=== PATIENT | male | born 1945 | race Two or more races ===

== ENCOUNTER 2017-08-18 09:36 | Emergency (ER) | payer MEDICARE, MEDICAID ==
[~2017-08-18] VITALS: Ht 167.6 cm; Wt 63.5 kg
[~2017-08-18 09:36] MED LIST: ATOR20TA PO; FLUT1DIS3 IH; FOLI1TAB16 PO; HYDR-552 PO; PRED10TA PO; ZOLP5TAB2 PO
[2017-08-18] MEDS ORDERED: diphenhydrAMINE HCL 50 MG/ML VIAL IV ONE (10:00)
[2017-08-18] MEDS ORDERED: FAMOTIDINE/PF INJ 40 MG in IV D5W 250 ML IV ONE (10:00)
[2017-08-18] MEDS ORDERED: predniSONE 10 MG TABLET PO ONE (10:00)
[2017-08-18] MEDS ORDERED: diphenhydrAMINE HCL 50 MG/ML VIAL ONE (10:35)
[2017-08-18] MEDS ORDERED: predniSONE 20 MG TABLET ONE (10:35)
--- NOTE | 2017-08-18 11:50 | NUR ---
COMPLETED MEDS AND IVF, STILL C/O ITCHING ON HIS BACK. DR SANTORO AWARE
--- NOTE | 2017-08-18 12:00 | NUR ---
IV removed. Catheter intact and site benign. Pressure and 4x4 applied to site. No bleeding noted.
--- NOTE | 2017-08-18 12:00 | NUR ---
Patient discharged to home in stable condition. Written and verbal after care instructions given. Patient verbalizes understanding of instruction.
[2017-08-18 12:02] VITALS: BP 125/60
== END 2017-08-18 12:03 | disposition home or self-care (01) ==
LOC: ER 09:44
DX: L50.0 Allergic urticaria (principal); J44.9 Chronic obstructive pulmonary disease, unspecified; F10.10 Alcohol abuse, uncomplicated; Z85.72 Personal history of non-Hodgkin lymphomas
CPT/HCPCS: A4606; J1200; J3490; J7060; Z7610

== ENCOUNTER 2017-08-24 12:23 | Emergency (ER) | payer MEDICARE, MEDICAID ==
[~2017-08-24] VITALS: Ht 172.7 cm; Wt 79.4 kg
[2017-08-24 13:22] LABS: BASOPHILS # (AUTO) 0.4 /CMM (0.0-0.2); BASOPHILS % (AUTO) 2.9 % (0.0-2.0); EOSINOPHILS # (AUTO) 0.6 /CMM (0.0-0.7); EOSINOPHILS % (AUTO) 4.5 % (0.0-6.0); HEMATOCRIT 51 % (39-51); HEMOGLOBIN 17.6 g/dL (13.5-17.5); LYMPHOCYTES # (AUTO) 3.8 /CMM (0.8-4.8); LYMPHOCYTES % (AUTO) 26.4 % (20.0-44.0); MEAN CORPUSCULAR HEMOGLOBIN 37 PG (26.0-33.0); MEAN CORPUSCULAR HGB CONC 35 g/dl (31.0-36.0); MEAN CORPUSCULAR VOLUME 107 fL (80-96); MONOCYTES # (AUTO) 4.9 /CMM (0.1-1.30); MONOCYTES % (AUTO) 33.5 % (2.0-12.0); NEUTROPHILS # (AUTO) 4.7 /CMM (1.8-8.9); NEUTROPHILS % (AUTO) 32.7 % (43.0-81.0); PLATELET COUNT (AUTO) 275 /CMM (150-450); RDW COEFFICIENT OF VARIATION 12.5 (11.5-15.0); RED BLOOD CELL COUNT(AUTO) 4.73 MIL/uL (4.5-6.0); WHITE BLOOD COUNT (AUTO) 14.4 K/uL (4.3-11.0)
[2017-08-24] MEDS ORDERED: hydrOXYzine 10 MG TABLET PO ONE (13:30)
[2017-08-24 13:42] LABS: INR 1.03 (0.87-1.13); PROTHROMBIN TIME 10.7 SECS (9.5-12.7)
[2017-08-24 13:44] LABS: ALANINE AMINOTRANSFERASE 40 U/L (12-78); ALBUMIN 2.9 g/dL (3.4-5.0); ALKALINE PHOSPHATASE 73 U/L (46-116); ASPARTATE AMINOTRANSFERASE 23 U/L (15-37); BILIRUBIN,TOTAL 0.8 mg/dL (0.2-1.0); CALCIUM, SERUM 8.4 mg/dL (8.5-10.1); CARBON DIOXIDE 31 mmol/L (21-32); CHLORIDE 100 mmol/L (98-107); CREATININE 1.4 mg/dL (0.6-1.3); GLUCOSE 143 mg/dL (74-106); POTASSIUM 4.2 mmol/L (3.5-5.1); SODIUM SERUM 135 mmol/L (136-145); UREA NITROGEN, BLOOD 23 mg/dL (7-18)
[2017-08-24] MEDS ORDERED: hydrOXYzine 10 MG TABLET ONE (13:44)
[2017-08-24] MEDS ORDERED: TRAMADOL HCL 50 MG TABLET ONE (14:13)
[2017-08-24] MEDS ORDERED: TRAMADOL HCL 50 MG TABLET PO ONE (14:30)
[2017-08-24 14:45] VITALS: BP 129/78
== END 2017-08-24 14:47 | disposition home or self-care (01) ==
LOC: ER 12:26
DX: L29.9 Pruritus, unspecified (principal); J44.9 Chronic obstructive pulmonary disease, unspecified; M54.5 Low back pain
CPT/HCPCS: 36415; 71250; 80053; 85025; 85610; 85730; 99285; A4606; Q0177; Z7610

== ENCOUNTER 2018-07-10 16:21 | Inpatient (IN) | payer MEDICARE, MEDICAID ==
[~2018-07-10] VITALS: Ht 177.8 cm; Wt 72.1 kg
[~2018-07-10 16:21] MED LIST changes: +HYDR-4384 PO; -HYDR-552 PO
--- NOTE | 2018-07-10 17:07 | NUR ---
72 Y/O MALE PLACED IN BED 15 C/O FEVER.
--- NOTE | 2018-07-10 17:36 | NUR ---
CALLED NURSING CATCH BASIN CLEANER FOR TELE BED
--- NOTE | 2018-07-10 17:42 | NUR ---
H/L 20G PLACED LEFT A/C. BLOOD OBTAINED AND SENT TO LAB.
[2018-07-10 17:47] LABS: HEMOGLOBIN 15.2 g/dL (13.5-17.5); MONOCYTES # (AUTO) 0.5 /CMM (0.1-1.30); MONOCYTES % (AUTO) 5.4 % (2.0-12.0); WHITE BLOOD COUNT (AUTO) 9.6 K/uL (4.3-11.0)
[2018-07-10 17:53] LABS: BASOPHILS % (AUTO) 0.5 % (0.0-2.0); EOSINOPHILS % (AUTO) 0.8 % (0.0-6.0); HEMATOCRIT 45 % (39-51); LYMPHOCYTES # (AUTO) 0.4 /CMM (0.8-4.8); LYMPHOCYTES % (AUTO) 4.3 % (20.0-44.0); MEAN CORPUSCULAR HGB CONC 34 g/dl (31.0-36.0); MEAN CORPUSCULAR VOLUME 112 fL (80-96); NEUTROPHILS # (AUTO) 8.5 /CMM (1.8-8.9); PLATELET COUNT (AUTO) 140 /CMM (150-450); RED BLOOD CELL COUNT(AUTO) 3.97 MIL/uL (4.5-6.0)
[2018-07-10] MEDS ORDERED: ACETAMINOPHEN 325 MG TABLET ONE (17:58)
[2018-07-10] MEDS ORDERED: IV NS 0.9% 1,000 ML BAG IV ONE (18:00)
[2018-07-10] MEDS ORDERED: ACETAMINOPHEN 325 MG TABLET PO ONE (18:00)
[2018-07-10 18:03] LABS: ALANINE AMINOTRANSFERASE 37 U/L (12-78); ALBUMIN 2.6 g/dL (3.4-5.0); ALKALINE PHOSPHATASE 101 U/L (46-116); ASPARTATE AMINOTRANSFERASE 26 U/L (15-37); BILIRUBIN,DIRECT 0.8 mg/dL (0.0-0.2); BILIRUBIN,TOTAL 1.8 mg/dL (0.2-1.0); CALCIUM, SERUM 8.7 mg/dL (8.5-10.1); CARBON DIOXIDE 26 mmol/L (21-32); CHLORIDE 99 mmol/L (98-107); CREATININE 1.3 mg/dL (0.6-1.3); GLUCOSE 144 mg/dL (74-106); SODIUM SERUM 137 mmol/L (136-145); TOTAL PROTEIN, SERUM 6.6 g/dL (6.4-8.2); UREA NITROGEN, BLOOD 15 mg/dL (7-18)
[2018-07-10] MEDS ORDERED: LEVOFLOXACIN 750 MG /D5W 150ML 150 ML IV ONE (18:20)
--- NOTE | 2018-07-10 18:26 | NUR ---
LABS BACK. ANTIBIOTICS STARTED.
[2018-07-10] MEDS ORDERED: VANCOMYCIN 1 GM in IV D5W 250 ML IV ONE (18:30)
[2018-07-10] MEDS ORDERED: LEVOFLOXACIN 750 MG /D5W 150ML PIGGYBACK IV ONE (18:30)
--- NOTE | 2018-07-10 18:46 | NUR ---
URINE COLLECTED AND SENT TO LAB
[2018-07-10 19:12] LABS: APPEARANCE,URINE Slightly Cloudy (CLEAR); BILIRUBIN,URINE SMALL (NEGATIVE); BLOOD, URINE Trace-lysed Ery/uL (NEGATIVE); COLOR,URINE Amber (YELLOW); KETONES,URINE Trace (NEGATIVE); LEUKOCYTE ESTERASE ,URINE Negative (NEGATIVE); NITRITE, URINE Positive (NEGATIVE); PH,URINE 5.5 (5.0-8.0); PROTEIN,URINE 100 mg/dl (NEGATIVE); UGLUCOSE Negative (NEGATIVE); UROBILINOGEN,URINE 0.2 EU/dL (0.2)
[2018-07-10 19:38] LABS: BACTERIA,URINE 1+ /HPF (None Seen); COARSE GRANULAR CASTS,URINE Few /LPF (None Seen); FINE GRANULAR CASTS,URINE Few /LPF (None Seen)
--- NOTE | 2018-07-10 19:38 | NUR ---
JIE MONTANO. PT ADMITTED.
[2018-07-10 19:39] LABS: MUCUS,URINE Few /LPF (None Seen); URINE AMORPHOUS URATE Few /HPF (None Seen)
[2018-07-10 19:41] LABS: SQUAMOUS EPITHELIAL CELL,UR Few /HPF (None Seen); WBC,URINE 0-2 /HPF (0-3)
[2018-07-10 20:00] LABS: BAND % (MANUAL) 14 % (0.0-5.0); LYMPHOCYTES % (MANUAL) 5 % (16-48); MONOCYTES % (MANUAL) 5 % (0-11.0); NEUTROPHILS % (MANUAL) 76 (42-76)
[2018-07-10] MEDS ORDERED: MORPHINE SULFATE INJ 4 MG/ML DISP.SYRIN IV PRN (20:00)
[2018-07-10] MEDS ORDERED: ONDANSETRON HCL/PF 4 MG/2 ML VIAL IVP PRN (20:00)
--- NOTE | 2018-07-10 20:00 | NUR ---
pt admitted to tele for fever, generalized body aches, and worsening generalized redness to the body, adx sepsis. pt has pmh of Macular Degeneration, CAD, Hyperlipidemia, COPD, Bronchitis, Pneumonia, UTI, Cellulitis, anemia, Lymphoma, and Myodysplastic syndrome. pt is awake alert x 4, pt is on room air sat wnl. pt is in st hr 120s, bp wnl. pt is voiding dark brown urine. skin is red and flaky. pt has temp of 101.2 in er. will continue to monitor
--- NOTE | 2018-07-10 20:02 | NUR ---
REPORT GIVEN TO JOANN. BIN - SEPSIS. WAITING FOR THE PACKET TO GET READY.
[2018-07-10] MEDS ORDERED: FEE PK DOSING 1 MIN EA MC ONE (20:26)
--- NOTE | 2018-07-10 20:44 | NUR ---
LACTIC DOWN TO 2.5
[2018-07-10] MEDS: IV NS 0.9% 1,000 ML IV SCH (21:12)
[2018-07-10] MEDS: ZOLPIDEM TARTRATE 5 MG TABLET PO SCH (21:17)
[2018-07-10 22:00] VITALS: BP 133/70
[2018-07-11] VITALS: BP 143/79
[2018-07-11] MEDS: PIPERACILLIN /TAZOBACTAM 3.375 G in IV D5W 50 ML IV SCH ×4 (00:07→17:04)
[2018-07-11] MEDS: ACETAMINOPHEN 325 MG TABLET PO PRN ×2 (00:17→11:46)
--- NOTE | 2018-07-11 02:43 | NUR ---
LACTIC ACID UP TO 6.1, DR ZALDIVAR NOTIFIED, NEW ORDERS RECEIVED
[2018-07-11] MEDS ORDERED: IV NS 0.9% 1,000 ML IV PRN (03:00)
[2018-07-11] MEDS ORDERED: IV NS 0.9% 1,000 ML IV ONE (03:00)
[2018-07-11 04:00] VITALS: BP 159/90
[2018-07-11 06:48] LABS: BASOPHILS % (AUTO) 0.2 % (0.0-2.0); EOSINOPHILS % (AUTO) 1.2 % (0.0-6.0); HEMATOCRIT 40 % (39-51); HEMOGLOBIN 13.5 g/dL (13.5-17.5); LYMPHOCYTES # (AUTO) 0.3 /CMM (0.8-4.8); LYMPHOCYTES % (AUTO) 2.9 % (20.0-44.0); MEAN CORPUSCULAR HGB CONC 34 g/dl (31.0-36.0); MEAN CORPUSCULAR VOLUME 113 fL (80-96); MONOCYTES # (AUTO) 0.7 /CMM (0.1-1.30); NEUTROPHILS % (AUTO) 87.7 % (43.0-81.0); PLATELET COUNT (AUTO) 116 /CMM (150-450); RED BLOOD CELL COUNT(AUTO) 3.51 MIL/uL (4.5-6.0); WHITE BLOOD COUNT (AUTO) 9.2 K/uL (4.3-11.0)
[2018-07-11 07:05] LABS: CALCIUM, SERUM 7.7 mg/dL (8.5-10.1); CARBON DIOXIDE 25 mmol/L (21-32); CHLORIDE 100 mmol/L (98-107); CREATININE 1.3 mg/dL (0.6-1.3); GLUCOSE 117 mg/dL (74-106); MAGNESIUM 1.8 mg/dL (1.8-2.4); POTASSIUM 4.2 mmol/L (3.5-5.1); SODIUM SERUM 137 mmol/L (136-145); UREA NITROGEN, BLOOD 14 mg/dL (7-18)
[2018-07-11 07:06] LABS: CHOLESTEROL 112 mg/dL (<200); HDL CHOLESTEROL 69 mg/dL (40-60); LDL 30 mg/dL (0-99); THYROID STIMULATING HORMONE 0.562 uIU/mL (0.358-3.74); TRIGLYCERIDES 107 mg/dL (30-150)
--- NOTE | 2018-07-11 07:15 | NUR ---
RN INITIAL NOTES RECEIVED PT ASLEEP, EASY TO AROUSE. PT ON 02 AT 2LPM VIA NC. NO SOB NOTED. NO SIGNS OF PAIN NOTED. IV LINE IN PLACE. IVF INFUSING. PT COMFORTABLE. CALL LIGHT WITHIN REACH. WILL MONITOR.
[2018-07-11 08:00] VITALS: BP 123/71
[2018-07-11] MEDS ORDERED: VANCOMYCIN 0.75 GM in IV D5W 250 ML IV SCH (08:00)
[2018-07-11 08:12] LABS: BAND % (MANUAL) 18 % (0.0-5.0); EOSINOPHILS % (MANUAL) 3 % (0-4); LYMPHOCYTES % (MANUAL) 4 % (16-48); METAMYELOCYTES % 1 % (0-0); MONOCYTES % (MANUAL) 9 % (0-11.0); MYELOCYTES % 1 % (0-0); NEUTROPHILS % (MANUAL) 63 (42-76); PROMYELOCYTES % 1 % (0-0)
[2018-07-11] MEDS: ATORVASTATIN 10 MG TABLET PO SCH (08:27)
[2018-07-11] MEDS: FOLIC ACID 1 MG TABLET PO SCH (08:27)
[2018-07-11] MEDS: IV NS 0.9% 1,000 ML IV SCH (08:28)
[2018-07-11] MEDS ORDERED: PANTOPRAZOLE 40 MG VIAL IV SCH (09:00)
[2018-07-11] MEDS ORDERED: predniSONE 10 MG TABLET PO SCH (09:00)
[2018-07-11] MEDS ORDERED: methylPREDNISolone DOSPAK(4MG) 1 PACK TAB.DS.PK PO ONE (11:00)
[2018-07-11] MEDS ORDERED: methylPREDNISolone (4MG) 4 MG TABLET (DAY #1 ) PO ONE (11:00)
[2018-07-11] MEDS: FLUTICASONE/VILANTEROL 1 EACH BLST.W.DEV IH SCH (11:07)
[2018-07-11] MEDS: ALPRAZOLAM 0.25 MG TABLET PO PRN (11:46)
[2018-07-11 12:00] VITALS: BP 119/67
--- NOTE | 2018-07-11 12:00 | NUR ---
RN NOTES 1130 SEEN AND EXAMINED DODIE PIMENTEL NP. PT A/OX4, FARSI SPEAKING AND UNDESTAND MALAWIAN. CHILD DAY CARE PROVIDER AWARE OF LAB VALUES AND CURRENT IMAGING STUDIES. PT WITH GENERALIZED REDNESS. DENIES ITCHING. SINUS TACHYCARDIA OB MONITOR, 110-180S. PLAN OF CARE DISCUSSED WITH FAMILY MEMBERS AT BEDSIDE. WILL MONITOR. 1200 SEEN AND EXAMINED BY DR SMALLS. MD REVIEWED H&P, CURRENT MEDS, LAB VALUES AND IMAGING STUDIES. AWARE OF HR 110-180S. ORDERED ECHO. WILL MONITOR.
[2018-07-11] MEDS ORDERED: methylPREDNISolone (4MG) 4 MG TABLET (DAY #1, PC LUNCH) PO ONE (12:30)
[2018-07-11] MEDS ORDERED: K PHOS NEUTRAL 250 MG TABLET PO ONE (12:30)
[2018-07-11] MEDS ORDERED: VANCOMYCIN 1 GM in IV D5W 250 ML IV SCH (13:00)
[2018-07-11] MEDS: FAMOTIDINE/PF INJ 20 MG/2 ML VIAL IV SCH ×2 (14:10→20:32)
[2018-07-11 16:00] VITALS: BP 120/75
[2018-07-11] MEDS ORDERED: methylPREDNISolone (4MG) 4 MG TABLET (DAY #1 PC DINNER) PO ONE (17:30)
--- NOTE | 2018-07-11 18:23 | NUR ---
RN CLOSING NOTES NO SIGNIFICANT CHANGE NOTED. PT KEPT COMFORTABLE. ALL NEEDS ATTENDED AND MET. KEPT CLEAN AND DRY. CALL LIGHT WITHIN. WILL ENDORSE FOR CONTINUITY OF CARE
[2018-07-11] MEDS: LORATADINE 10 MG TABLET PO SCH (18:29)
--- NOTE | 2018-07-11 19:30 | NUR ---
TELE NOTES RECEIVED PT AWAKE ALERT OX3.WHOLE BODY ,ARMS AND LEGS ARE RED,DEVELOPED ALLERGY FROM ORGANIC HONEY,NO BLISTERS NOTED.
[2018-07-11 20:00] VITALS: BP 109/69
[2018-07-11] MEDS: ZOLPIDEM TARTRATE 5 MG TABLET PO SCH (21:51)
[2018-07-11] MEDS ORDERED: methylPREDNISolone (4MG) 4 MG TABLET (DAY1,HS) PO ONE (22:00)
[2018-07-11] MEDS ORDERED: methylPREDNISolone (4MG) 4 MG TABLET ONE ×2 (22:15→22:31)
[2018-07-12] VITALS: BP 108/63
[2018-07-12] MEDS: IV NS 0.9% 1,000 ML IV SCH ×3 (00:23→18:43)
[2018-07-12 04:00] VITALS: BP 110/60
--- NOTE | 2018-07-12 05:00 | NUR ---
TELE NOTES OOB TO BR TO VOID,ACCIDENTALLY PULLED IV OUT,W/BLOOD ON THE BED,LINEN CHANGED.RESTARTED IV W/ANGIO#20 VIA LT HAND W/OUT DIFFICULTY
[2018-07-12 06:42] LABS: CALCIUM, SERUM 7.8 mg/dL (8.5-10.1); CARBON DIOXIDE 24 mmol/L (21-32); CHLORIDE 100 mmol/L (98-107); CREATININE 2.2 mg/dL (0.6-1.3); GLUCOSE 169 mg/dL (74-106); PHOSPHORUS 3.1 mg/dL (2.5-4.9); POTASSIUM 3.6 mmol/L (3.5-5.1); SODIUM SERUM 136 mmol/L (136-145); UREA NITROGEN, BLOOD 26 mg/dL (7-18)
--- NOTE | 2018-07-12 06:43 | NUR ---
TELE NOTES MONITOR SHOWS SINU RHYTHM.OFFERS NO COMPLAINTS.
[2018-07-12] MEDS ORDERED: methylPREDNISolone (4MG) 4 MG TABLET (DAY#2 ACB) PO ONE (07:30)
--- NOTE | 2018-07-12 07:30 | NUR ---
RN NOTES RECEIVED PATIENT, ALERT AND ORIENTED X3, ABLE TO EXPRESS SELF, NOT ON ANY FORM DISTRESS, ON ROOM AIR, BREATHING UNLABORED, SATURATING WELL AT 97%, DRY SCALY SKIN OVER THE HEAD, BODY IS REDDENED ALL OVER, ON TELEMONITOR SINUS RHYTHM HR AT 78 AT THIS TIME, SKIN IS WARM TO TOUCH, IV LINE ON THE LEFT HAND G [address]ACE, WITH ONGOING IVF OF NS RUNNING AT 75 ML/HR, PATIENT ABLE TO FOLLOW COMMAND, SAFETY PRECAUTIONS OBSERVED AND MAINTAINED, CALL LIGHT PLACE WITHIN EASY REACH, WILL CONTINUE TO MONITOR PATIENT CLOSELY
[2018-07-12 08:00] VITALS: BP 113/72
[2018-07-12] MEDS: FOLIC ACID 1 MG TABLET PO SCH (08:42)
[2018-07-12] MEDS: FLUTICASONE/VILANTEROL 1 EACH BLST.W.DEV IH SCH (08:42)
[2018-07-12] MEDS: ATORVASTATIN 10 MG TABLET PO SCH (08:42)
[2018-07-12] MEDS: LORATADINE 10 MG TABLET PO SCH (08:43)
[2018-07-12] MEDS: FAMOTIDINE/PF INJ 20 MG/2 ML VIAL IV SCH ×2 (08:43→21:11)
[2018-07-12] MEDS ORDERED: IV NS 0.9% 500 ML IV ONE (10:00)
--- NOTE | 2018-07-12 10:04 | NUR ---
WOUND CARE CONSULT: PT SEEN ON REQUEST OF DOUGLAS PIMENTEL DNP FOR SKIN ASSESSMENT. PT PRESENTS WITH VERY RED SKIN ALL OVER HIS BODY WITH FLAKY SKIN ON FACE. DEFER TO MD/DNP FOR REDNESS OF SKIN. NO OPEN WOUNDS NOTED. WILL SEE PRN.
[2018-07-12 12:00] VITALS: BP 104/56
[2018-07-12] MEDS ORDERED: methylPREDNISolone (4MG) 4 MG TABLET (DAY#2,PC LUNCH) PO ONE (12:30)
[2018-07-12 16:00] VITALS: BP 100/58
[2018-07-12] MEDS ORDERED: methylPREDNISolone (4MG) 4 MG TABLET (DAY#2, PC DINNER) PO ONE (17:30)
--- NOTE | 2018-07-12 19:07 | NUR ---
RN NOTES ENDORSED PATIENT FOR CONTINUITY OF CARE. NO ACUTE CHANGES WITHIN THE SHIFT. ALL [id number] NEEDS ANTICIPATED, ATTENDED AND MET. SAFETY PRECAUTIONS OBSERVED AND MAINTAINED. CALL LIGHT WITHIN REACH AT ALL TIMES
--- NOTE | 2018-07-12 19:45 | NUR ---
HUMBLE/PLASTERER FOREMAN RECEIVED REPORT DAY NURSE. SEE FLOWSHEET FOR ASSESSMENT AND SKIN ASSESSMENT. PT TOLERATING ROOM AIR WITHOUT DISTRESS. PT UP AD CHARLES.
[2018-07-12 20:00] VITALS: BP 149/77
[2018-07-12] MEDS ORDERED: methylPREDNISolone (4MG) 4 MG TABLET (DAY#2, HS) PO ONE (21:00)
[2018-07-12] MEDS: ZOLPIDEM TARTRATE 5 MG TABLET PO SCH (21:08)
--- NOTE | 2018-07-12 22:10 | NUR ---
HUMBLE/ROAD CREW MEMBER PT GIVEN AMBIEN TO HELP PT SLEEP. CALL LIGHT WITHIN REACH.
[2018-07-13] VITALS: BP 128/70
--- NOTE | 2018-07-13 01:30 | NUR ---
HUMBLE/COVERED BUTTON MAKER PT APPEARS TO BE COMFORTABLE WITH NO ACUTE DISTRESS SEEN. CALL LIGHT WITHIN REACH
[2018-07-13] MEDS: IV NS 0.9% 1,000 ML IV SCH ×3 (03:08→21:42)
[2018-07-13] MEDS: ALPRAZOLAM 0.25 MG TABLET PO PRN (03:14)
--- NOTE | 2018-07-13 03:14 | NUR ---
HUMBLE/VINE PRUNER PT C/O OF SOME ANXIETY, GAVE XANAX .25MG FOR THIS. CALL LIGHT WITHIN REACH WILL MONITOR THIS PT.
[2018-07-13 04:00] VITALS: BP 94/67
--- NOTE | 2018-07-13 05:10 | NUR ---
HUMBLE/JOB SUPERINTENDENT AM LABS WERE DRAWN, WAIT FOR ANY ABNORMAL LABS
[2018-07-13 06:30] LABS: BASOPHILS # (AUTO) 0.2 /CMM (0.0-0.2); BASOPHILS % (AUTO) 1.9 % (0.0-2.0); EOSINOPHILS % (AUTO) 0.8 % (0.0-6.0); HEMATOCRIT 31 % (39-51); HEMOGLOBIN 10.3 g/dL (13.5-17.5); LYMPHOCYTES # (AUTO) 3.7 /CMM (0.8-4.8); LYMPHOCYTES % (AUTO) 40.7 % (20.0-44.0); MEAN CORPUSCULAR HGB CONC 34 g/dl (31.0-36.0); MEAN CORPUSCULAR VOLUME 113 fL (80-96); MONOCYTES # (AUTO) 0.1 /CMM (0.1-1.30); MONOCYTES % (AUTO) 1.5 % (2.0-12.0); NEUTROPHILS % (AUTO) 55.1 % (43.0-81.0); PLATELET COUNT (AUTO) 163 /CMM (150-450); RED BLOOD CELL COUNT(AUTO) 2.71 MIL/uL (4.5-6.0); WHITE BLOOD COUNT (AUTO) 9.2 K/uL (4.3-11.0)
[2018-07-13 06:49] LABS: ALANINE AMINOTRANSFERASE 35 U/L (12-78); ALBUMIN 1.8 g/dL (3.4-5.0); ALKALINE PHOSPHATASE 76 U/L (46-116); ASPARTATE AMINOTRANSFERASE 38 U/L (15-37); BILIRUBIN,TOTAL 0.7 mg/dL (0.2-1.0); CALCIUM, SERUM 7.8 mg/dL (8.5-10.1); CARBON DIOXIDE 25 mmol/L (21-32); CHLORIDE 108 mmol/L (98-107); GLUCOSE 144 mg/dL (74-106); MAGNESIUM 2.2 mg/dL (1.8-2.4); PHOSPHORUS 3.3 mg/dL (2.5-4.9); POTASSIUM 3.8 mmol/L (3.5-5.1); SODIUM SERUM 142 mmol/L (136-145); TOTAL PROTEIN, SERUM 4.8 g/dL (6.4-8.2); UREA NITROGEN, BLOOD 39 mg/dL (7-18)
[2018-07-13 07:20] LABS: CREATINE KINASE, TOTAL 129 U/L (39-308)
--- NOTE | 2018-07-13 07:25 | NUR ---
MS RN OPENING NOTES RECEIVED PT ON BED.ALERT/ORIENTED X4,FARSI SPEAKING.ON RA,TOLERATING WELL.NO SOB AND ACUTE DISTRESS NOTED.IV LINE IS ON LEFT HAND G20,SITE SIC LEAN,DRY AND INTACT.SAFETY IS MAINTAINED AT ALL TIMES.BE DIS IN LOW POSITION AND LOCKED.CALL LIGHT IS WITHIN REACH.WILL CONTINUE TO MONITOR THE PT CLOSELY. WAITING FOR DERMATOLOGY CONSULTATION TO SEE THE PT.
[2018-07-13] MEDS ORDERED: methylPREDNISolone (4MG) 4 MG TABLET (DAY#3,ACB) PO ONE (07:30)
[2018-07-13 08:00] VITALS: BP 125/77
[2018-07-13] MEDS: LORATADINE 10 MG TABLET PO SCH (09:06)
[2018-07-13] MEDS: FAMOTIDINE/PF INJ 20 MG/2 ML VIAL IV SCH ×2 (09:06→21:28)
[2018-07-13] MEDS: FLUTICASONE/VILANTEROL 1 EACH BLST.W.DEV IH SCH (09:06)
[2018-07-13] MEDS: ATORVASTATIN 10 MG TABLET PO SCH (09:06)
[2018-07-13] MEDS: FOLIC ACID 1 MG TABLET PO SCH (09:07)
[2018-07-13 09:12] LABS: LYMPHOCYTES % (MANUAL) 21 % (16-48); MONOCYTES % (MANUAL) 2 % (0-11.0); NEUTROPHILS % (MANUAL) 77 (42-76)
[2018-07-13] MEDS ORDERED: methylPREDNISolone (4MG) 4 MG TABLET (DAY#3,PC LUNCH) PO ONE (12:30)
[2018-07-13 16:00] VITALS: BP 129/79
[2018-07-13] MEDS ORDERED: methylPREDNISolone (4MG) 4 MG TABLET (DAY#3,PC DINNER) PO ONE (17:30)
--- NOTE | 2018-07-13 18:56 | NUR ---
MS RN CLOSING NOTES PT IS ON BED.ALERT/ORIENTED X4.VITAL SIGNS ARE WNL.CONTINUE WITH IV FLUIDS.ENDORSED TO CREMATOR RN FOR CONTINUITY OF CARE.
[2018-07-13 20:00] VITALS: BP 145/78
--- NOTE | 2018-07-13 20:00 | NUR ---
MS RN NOTES RECEIVED PTS A/OX4 , NO SOB NO DISTRESS NOTED , ALL DUE MEDS GIVEN ORDERED ALL NEEDS ATTENDED TOO CALL LIGHT WITHIN REACH KEPT PTS CLEAN DRY AND COMFORTABLE.PTS ON IVF NS AT 125 CC/HR INFUSING WELL .WILL CONTINUE TO MONITOR PTS.
[2018-07-13] MEDS: ZOLPIDEM TARTRATE 5 MG TABLET PO SCH (21:28)
[2018-07-13] MEDS ORDERED: methylPREDNISolone (4MG) 4 MG TABLET (DAY#3, HS) PO ONE (22:00)
[2018-07-14 04:00] VITALS: BP 142/61
[2018-07-14 06:24] LABS: BASOPHILS # (AUTO) 0.1 /CMM (0.0-0.2); EOSINOPHILS % (AUTO) 2.4 % (0.0-6.0); HEMATOCRIT 37 % (39-51); HEMOGLOBIN 11.9 g/dL (13.5-17.5); LYMPHOCYTES # (AUTO) 7.4 /CMM (0.8-4.8); LYMPHOCYTES % (AUTO) 55.6 % (20.0-44.0); MEAN CORPUSCULAR HGB CONC 32 g/dl (31.0-36.0); MEAN CORPUSCULAR VOLUME 114 fL (80-96); MONOCYTES # (AUTO) 0.5 /CMM (0.1-1.30); NEUTROPHILS # (AUTO) 4.9 /CMM (1.8-8.9); PLATELET COUNT (AUTO) 239 /CMM (150-450); RED BLOOD CELL COUNT(AUTO) 3.22 MIL/uL (4.5-6.0); WHITE BLOOD COUNT (AUTO) 13.2 K/uL (4.3-11.0)
[2018-07-14 06:35] LABS: CALCIUM, SERUM 7.8 mg/dL (8.5-10.1); CARBON DIOXIDE 25 mmol/L (21-32); CHLORIDE 109 mmol/L (98-107); CREATININE 1.9 mg/dL (0.6-1.3); GLUCOSE 112 mg/dL (74-106); POTASSIUM 3.8 mmol/L (3.5-5.1); SODIUM SERUM 145 mmol/L (136-145); UREA NITROGEN, BLOOD 38 mg/dL (7-18)
[2018-07-14] MEDS: IV NS 0.9% 1,000 ML IV SCH (06:46)
[2018-07-14] MEDS ORDERED: methylPREDNISolone (4MG) 4 MG TABLET (DAY #4, ACB) PO ONE (07:30)
[2018-07-14 08:00] VITALS: BP 152/76
--- NOTE | 2018-07-14 08:00 | NUR ---
MS RN NOTES PT REFUSED CT SCAN TODAY. PT STATES, "TRACY HAD MANY CT SCANS, I DONT WANT ANOTHER ONE." WILL NOTIFY .
[2018-07-14] MEDS: FAMOTIDINE/PF INJ 20 MG/2 ML VIAL IV SCH ×2 (09:00→21:21)
[2018-07-14 09:14] LABS: EOSINOPHILS % (MANUAL) 2 % (0-4); LYMPHOCYTES % (MANUAL) 53 % (16-48); MONOCYTES % (MANUAL) 14 % (0-11.0); NEUTROPHILS % (MANUAL) 31 (42-76)
[2018-07-14] MEDS: FOLIC ACID 1 MG TABLET PO SCH (09:37)
[2018-07-14] MEDS: LORATADINE 10 MG TABLET PO SCH (09:37)
[2018-07-14] MEDS: ATORVASTATIN 10 MG TABLET PO SCH (09:38)
--- NOTE | 2018-07-14 09:51 | NUR ---
PT REFUSING OF 0930 HRS, ASKED NURSE TO PLEASE INFORM ORDERING PHYSICIAN.
[2018-07-14 11:13] LABS: PTH, INTACT 85 pg/mL (15-65)
[2018-07-14 12:12] LABS: *SPE A/G RATIO 0.9 (0.7-1.7); *SPE ALPHA-1-GLOBULIN 0.4 g/dL (0.0-0.4); *SPE ALPHA-2-GLOBULIN 0.7 g/dL (0.4-1.0); *SPE BETA GLOBULIN 0.7 g/dL (0.7-1.3); *SPE GLOBULIN, TOTAL 2.3 g/dL (2.2-3.9); *SPE M-SPIKE Not Observed g/dL (Not Observed); *SPEGAMMA GLOBULIN 0.5 g/dL (0.4-1.8)
[2018-07-14] MEDS ORDERED: methylPREDNISolone (4MG) 4 MG TABLET (DAY #4, PC LUNCH) PO ONE (12:30)
--- NOTE | 2018-07-14 13:59 | NUR ---
CYRUS met pt. and his family bedside along with ROBOTIC MACHINE OPERATOR Lamar. Pt. is Farsi speaking. Pt's daughter Amanda assisted with translation. Pt. is hesitant to go to a snf, however the doctor is recommending SNF placement. Pt's daughter spoke to the pt. and with some understanding pt. agreed to go to SNF for a short term stay. CYRUS also informed pt. and his family SW to apply for In Home Support services. Pt. and family agreed and were grateful. CYRUS contacted [facility] and spoke to [facility] CYRUS Lemus and initiated an [facility] application. Pt's [facility] case ID is [id number]. CYRUS also contacted pt's daughter Mariah and gave her the case ID number for pt's [facility] application.
[2018-07-14] MEDS ORDERED: PRED20TA PO (15:57)
[2018-07-14 16:00] VITALS: BP 148/80
--- NOTE | 2018-07-14 17:37 | NUR ---
07/14/18 PER HOSPITALIST PT IS STABLE FOR DC AFTER NONE MARRO BIOPSY BY DR MALCOLM. SPOKE WITH DTR KEVIN WHO AGREED WITH DC PLAN. TRANSPORTATION VIA [facility] ON WILL CALL TRIP#: [phone]. CN MADE AWARE. Addendum: 07/14/18 at 1738 by NEELIMA MORA CMG Amended: Links added.
[2018-07-14] MEDS ORDERED: LIDOCAINE 1% INJ 50 ML MDV IJ ONE (18:00)
--- NOTE | 2018-07-14 19:00 | NUR ---
MS RN NOTE DR MALCOLM DID BONE MARROW BIOPSY AT BEDSIDE. PT TOLERATED. MEDICATED FOR PAIN AFTER. PT LYING ON BIOPSY SITE. NO COMPLAINT OF PAIN AT THIS TIME.
--- NOTE | 2018-07-14 19:30 | NUR ---
MS RN NOTE PT ENDORSED TO PM NURSE FOR NIKI. ALL NEEDS ATTENDED TO. CALL LIGHT IN REACH. SAFETY PRECAUTIONS IN PLACE.
[2018-07-14 19:33] LABS: APPEARANCE,URINE CLEAR (CLEAR); BILIRUBIN,URINE NEGATIVE (NEGATIVE); BLOOD, URINE TRACE Ery/uL (NEGATIVE); COLOR,URINE YELLOW (YELLOW); KETONES,URINE NEGATIVE (NEGATIVE); LEUKOCYTE ESTERASE ,URINE NEGATIVE (NEGATIVE); NITRITE, URINE NEGATIVE (NEGATIVE); PH,URINE 5.5 (5.0-8.0); PROTEIN,URINE NEGATIVE (NEGATIVE); UGLUCOSE NEGATIVE (NEGATIVE); UROBILINOGEN,URINE 0.2 EU/dL (0.2)
[2018-07-14 19:46] LABS: BACTERIA,URINE None seen /HPF (None Seen); RBC,URINE 0-2 /HPF (0-2); SQUAMOUS EPITHELIAL CELL,UR None Seen /HPF (None Seen); WBC,URINE NONE SEEN /HPF (0-3)
[2018-07-14 20:00] VITALS: BP 136/77
[2018-07-14 20:09] LABS: EOSINOPHIL,URINE None Seen
[2018-07-14 20:42] LABS: CREATININE, URINE 29.7 MG/DL (30.0-125.0); URINE TOTAL PROTEIN 1.4 mg/dL (0-11.9)
[2018-07-14 21:07] LABS: BASOPHILS # (AUTO) 0.3 /CMM (0.0-0.2); BASOPHILS % (AUTO) 2.6 % (0.0-2.0); EOSINOPHILS % (AUTO) 2.5 % (0.0-6.0); HEMATOCRIT 37 % (39-51); HEMOGLOBIN 12.2 g/dL (13.5-17.5); LYMPHOCYTES # (AUTO) 6.3 /CMM (0.8-4.8); LYMPHOCYTES % (AUTO) 47.9 % (20.0-44.0); MEAN CORPUSCULAR HGB CONC 33 g/dl (31.0-36.0); MEAN CORPUSCULAR VOLUME 113 fL (80-96); MONOCYTES # (AUTO) 0.2 /CMM (0.1-1.30); MONOCYTES % (AUTO) 1.8 % (2.0-12.0); NEUTROPHILS % (AUTO) 45.2 % (43.0-81.0); PLATELET COUNT (AUTO) 285 /CMM (150-450); RED BLOOD CELL COUNT(AUTO) 3.27 MIL/uL (4.5-6.0); WHITE BLOOD COUNT (AUTO) 13.2 K/uL (4.3-11.0)
[2018-07-14] MEDS: ZOLPIDEM TARTRATE 5 MG TABLET PO SCH (21:22)
[2018-07-14] MEDS: IV NS 0.9% 1,000 ML IV PRN (21:24)
[2018-07-14 21:48] LABS: EOSINOPHILS % (MANUAL) 1 % (0-4); LYMPHOCYTES % (MANUAL) 40 % (16-48); MONOCYTES % (MANUAL) 4 % (0-11.0); NEUTROPHILS % (MANUAL) 55 (42-76)
[2018-07-14] MEDS ORDERED: methylPREDNISolone (4MG) 4 MG TABLET (DAY#4 HS) PO ONE (22:00)
[2018-07-15 04:00] VITALS: BP 133/82
[2018-07-15] MEDS: IV NS 0.9% 1,000 ML IV PRN (05:51)
[2018-07-15 06:28] LABS: BASOPHILS # (AUTO) 0.1 /CMM (0.0-0.2); BASOPHILS % (AUTO) 1.1 % (0.0-2.0); EOSINOPHILS % (AUTO) 3.1 % (0.0-6.0); HEMATOCRIT 30 % (39-51); HEMOGLOBIN 10.2 g/dL (13.5-17.5); LYMPHOCYTES % (AUTO) 42.4 % (20.0-44.0); MEAN CORPUSCULAR HGB CONC 33 g/dl (31.0-36.0); MEAN CORPUSCULAR VOLUME 113 fL (80-96); MONOCYTES # (AUTO) 0.8 /CMM (0.1-1.30); MONOCYTES % (AUTO) 8.7 % (2.0-12.0); NEUTROPHILS # (AUTO) 4.2 /CMM (1.8-8.9); NEUTROPHILS % (AUTO) 44.7 % (43.0-81.0); PLATELET COUNT (AUTO) 242 /CMM (150-450); RED BLOOD CELL COUNT(AUTO) 2.69 MIL/uL (4.5-6.0); WHITE BLOOD COUNT (AUTO) 9.4 K/uL (4.3-11.0)
[2018-07-15 06:50] LABS: ALANINE AMINOTRANSFERASE 48 U/L (12-78); ALKALINE PHOSPHATASE 72 U/L (46-116); ASPARTATE AMINOTRANSFERASE 32 U/L (15-37); BILIRUBIN,TOTAL 0.6 mg/dL (0.2-1.0); CALCIUM, SERUM 7.7 mg/dL (8.5-10.1); CARBON DIOXIDE 23 mmol/L (21-32); CHLORIDE 113 mmol/L (98-107); CREATININE 1.7 mg/dL (0.6-1.3); GLUCOSE 96 mg/dL (74-106); PHOSPHORUS 4.7 mg/dL (2.5-4.9); POTASSIUM 3.8 mmol/L (3.5-5.1); SODIUM SERUM 146 mmol/L (136-145); TOTAL PROTEIN, SERUM 4.8 g/dL (6.4-8.2); UREA NITROGEN, BLOOD 36 mg/dL (7-18)
--- NOTE | 2018-07-15 07:00 | NUR ---
MS RN INITIAL NOTES RECEIVED REPORT FROM PM NURSE. PT IS AWAKE IN BED; A/OX3. ON ROOM AIR NO RESP DISTRESS. PT'S SKIN IS PEELING AND RED. LUNG SOUNDS CLEAR TO AUSCULTATION. IV FLUIDS RUNNING AT 125ML/HR VIA IV IN R FOREARM. NO S/SX INFECTION. PT AMBULATES TO BR; STEADY GAIT. BED IN LOCKED/LOWEST POSITION. CALL LIGHT IN REACH. WILL CONT TO MONITOR.
[2018-07-15] MEDS ORDERED: methylPREDNISolone (4MG) 4 MG TABLET (DAY#5, ACB) PO ONE (07:30)
[2018-07-15 07:33] LABS: EOSINOPHILS % (MANUAL) 4 % (0-4); LYMPHOCYTES % (MANUAL) 46 % (16-48); MONOCYTES % (MANUAL) 8 % (0-11.0); NEUTROPHILS % (MANUAL) 42 (42-76)
[2018-07-15 08:00] VITALS: BP 125/53
[2018-07-15] MEDS: FLUTICASONE/VILANTEROL 1 EACH BLST.W.DEV IH SCH ×2 (08:44→09:28)
[2018-07-15] MEDS: FOLIC ACID 1 MG TABLET PO SCH (08:45)
[2018-07-15] MEDS: ATORVASTATIN 10 MG TABLET PO SCH (08:47)
[2018-07-15] MEDS: ACETAMINOPHEN 325 MG TABLET PO PRN (08:48)
[2018-07-15] MEDS: LORATADINE 10 MG TABLET PO SCH (08:48)
[2018-07-15] MEDS: FAMOTIDINE/PF INJ 20 MG/2 ML VIAL IV SCH (08:48)
[2018-07-15] MEDS ORDERED: IV 1/2NS 1000 ML 1,000 ML IV PRN (12:00)
--- NOTE | 2018-07-15 14:00 | NUR ---
MS RN NOTE REPORTED TO GRACIA OF [facility] 3N ROOM 3238. OK FOR PT TO BE DISCHARGED WITH IV IN.
--- NOTE | 2018-07-15 15:30 | NUR ---
MS RN NOTES PT LEFT WITH BELONGINGS/DISCHARGE INSTRUCTIONS SIGNED/IV IN PLACE. DRIVEN BY AMBULANCE. ALL NEEDS ATTENDED.
[2018-07-15] MEDS ORDERED: methylPREDNISolone (4MG) 4 MG TABLET (DAY#5,HS) PO ONE (22:00)
[2018-07-16] MEDS ORDERED: methylPREDNISolone (4MG) 4 MG TABLET (DAY#6,ACB) PO ONE (07:30)
== END 2018-07-15 15:27 | disposition short-term general hospital (02) | DRG 840 ==
LOC: ER 16:30 → TELE1 19:24 → MEDSG1 07-13 07:56
PROVIDERS: ADMIT Registered Nurse; ATTEND Nurse Practitioner Acute Care
PROC: 07DR3ZX Extraction of Iliac Bone Marrow, Percutaneous Approach, Diagnostic (ICD-10-PCS; principal; 2018-07-14)
DX: C85.90 Non-Hodgkin lymphoma, unspecified, unspecified site (principal); A41.9 Sepsis, unspecified organism; N17.0 Acute kidney failure with tubular necrosis; N39.0 Urinary tract infection, site not specified; E87.2 Acidosis; E44.0 Moderate protein-calorie malnutrition; I25.10 Atherosclerotic heart disease of native coronary artery without angina pectoris; J44.9 Chronic obstructive pulmonary disease, unspecified; E78.5 Hyperlipidemia, unspecified; D69.6 Thrombocytopenia, unspecified; Z92.21 Personal history of antineoplastic chemotherapy; L27.2 Dermatitis due to ingested food; E80.6 Other disorders of bilirubin metabolism; W18.30XA Fall on same level, unspecified, initial encounter; Y92.89 Other specified places as the place of occurrence of the external cause; H35.30 Unspecified macular degeneration; Z87.891 Personal history of nicotine dependence
CPT/HCPCS: 36415; 71045-TC; 71250-TC; 74181-TC; 76700-TC; 80048-TC; 80053-TC; 80061-TC; 80076-TC; 80202-TC; 81000-TC; 82550-TC; 82570-TC; 83605-TC; 83615-TC; 83735-TC; 83970; 84100-TC; 84155; 84155-TC; 84165; 84300-TC; 84443-TC; 84484-TC; 85025-TC; 85730-TC; 87040-TC; 87081-TC; 87086-TC; 93307-TC; A4606; A6402; C9113; G0378; J1956; J2270; J2543; J3370; J3490; J7030; J7060; J7509; Z7610

== ENCOUNTER 2020-05-08 12:09 | Inpatient (IN) | payer MEDICARE, OTHER ==
[~2020-05-08] VITALS: Ht 167.6 cm; Wt 66.7 kg
[~2020-05-08 12:09] MED LIST changes: +PRED20TA PO
[2020-05-08] MEDS ORDERED: IV NS 0.9% 500 ML BAG IV ONE (12:30)
[2020-05-08] MEDS ORDERED: TRAM50TA2 PO (12:37)
[2020-05-08] MEDS ORDERED: ROSU10TA29 PO (12:37)
[2020-05-08] MEDS ORDERED: CEFU500T66 PO (12:37)
[2020-05-08] MEDS ORDERED: ASPI-1169 PO (12:37)
[2020-05-08 12:59] LABS: BASOPHILS % (AUTO) 0.3 % (0.0-2.0); EOSINOPHILS % (AUTO) 0.6 % (0.0-6.0); HEMATOCRIT 42 % (39-51); LYMPHOCYTES # (AUTO) 0.5 /CMM (0.8-4.8); LYMPHOCYTES % (AUTO) 10.9 % (20.0-44.0); MEAN CORPUSCULAR HGB CONC 33 g/dl (31.0-36.0); MEAN CORPUSCULAR VOLUME 102 fL (80-96); MONOCYTES # (AUTO) 0.3 /CMM (0.1-1.30); MONOCYTES % (AUTO) 5.6 % (2.0-12.0); NEUTROPHILS # (AUTO) 4.1 /CMM (1.8-8.9); NEUTROPHILS % (AUTO) 82.6 % (43.0-81.0); PLATELET COUNT (AUTO) 116 /CMM (150-450); RED BLOOD CELL COUNT(AUTO) 4.12 MIL/uL (4.5-6.0)
--- NOTE | 2020-05-08 13:03 | NUR ---
BIBRA FOR SYNCOPAL EPISODE. URI SYMPTOMS X 3 DAYS & TAKING ANTIBIOTIC PER DAUGHTER. BG 172, - TRAUMA. PT AAOX4, VSS. RR EVEN & UNLABORED. DENIES CP, SOB, DIZZINESS, N/V/D AT THIS TIME. PT SEEN & EVAL'D BY DR. GREGORY. PLACED ON DISTRIBUTION OPERATION SUPERVISOR, SR. WILL CONT TO MONITOR.
--- NOTE | 2020-05-08 13:06 | NUR ---
RAPID COVID TEST DONE & SENT TO LAB.
[2020-05-08 13:07] LABS: CALCIUM, SERUM 8.5 mg/dL (8.5-10.1); CARBON DIOXIDE 33 mmol/L (21-32); CHLORIDE 102 mmol/L (98-107); CREATININE 1.3 mg/dL (0.6-1.3); GLUCOSE 201 mg/dL (74-106); POTASSIUM 4.3 mmol/L (3.5-5.1); SODIUM SERUM 140 mmol/L (136-145); UREA NITROGEN, BLOOD 16 mg/dL (7-18)
[2020-05-08 13:13] LABS: ALANINE AMINOTRANSFERASE 34 U/L (12-78); ALBUMIN 3.4 g/dL (3.4-5.0); ALKALINE PHOSPHATASE 57 U/L (46-116); ASPARTATE AMINOTRANSFERASE 26 U/L (15-37); BILIRUBIN,DIRECT 0.3 mg/dL (0.0-0.2); BILIRUBIN,TOTAL 1.7 mg/dL (0.2-1.0); TOTAL PROTEIN, SERUM 7.1 g/dL (6.4-8.2)
--- NOTE | 2020-05-08 13:47 | NUR ---
COVID RESULT: POSITIVE
[2020-05-08] MEDS ORDERED: ONDANSETRON HCL/PF 4 MG/2 ML VIAL IVP PRN (15:30)
[2020-05-08] MEDS ORDERED: ALBUTEROL SULFATE 8 GM HFA.AER.AD IH PRN (15:30)
--- NOTE | 2020-05-08 15:30 | NUR ---
PT AWAKE SITTING UP. RR EVEN & UNLABORED, NO RESP DISTRESS NOTED. DENIES CP, DIZZINESS, N/V AT THIS TIME. AWAITING BED ASSIGNMENT.
--- NOTE | 2020-05-08 16:05 | NUR ---
GOT BED 200 READY IN 15 MINS.
[2020-05-08] MEDS ORDERED: CEFTRIAXONE 1 G in IV D5W 50 ML IV SCH (17:00)
[2020-05-08 17:05] LABS: C-REACTIVE PROTEIN 4.3 mg/dL (0.0-0.9)
--- NOTE | 2020-05-08 17:33 | NUR ---
REPORT GIVEN TO VIRAJ ROBERTS FOR NIKI
[2020-05-08 21:00] VITALS: BP 125/89
--- NOTE | 2020-05-08 21:00 | NUR ---
RN Notes Admitted patient from ER, awake, alert and oriented x4. Denies pain, sob and chest pain . Current diet tolerated, denies nausea and vomiting. Skin check done, skin intact. Attached to tele monitor, NSR with HR at 75. Plan of care discussed with the patient and verbalized understanding. Spoke to jose Patel over the phone, plan of care discussed and verbalized understanding. Kept comfortable and all needs attended. Isolation precaution observed. Will continue to monitor.
[2020-05-08] MEDS: IV NS 0.9% 1,000 ML IV PRN (21:46)
[2020-05-08] MEDS: ENOXAPARIN SODIUM 40 MG/0.4 ML DISP.SYRIN SQ SCH (21:48)
[2020-05-08] MEDS: DOXYCYCLINE HYCLATE (100 MG) 100 MG TABLET PO SCH (21:56)
[2020-05-08 22:00] VITALS: BP 125/89
[2020-05-09] VITALS: BP 130/73
[2020-05-09 04:00] VITALS: BP 120/70
--- NOTE | 2020-05-09 06:40 | NUR ---
RN Notes Patient stable overnight, afebrile. Current diet tolerated, denies nausea and vomiting. Denies pain, sob and chest pain, no complains made. All needs met. Will endorse for continuity of care.
--- NOTE | 2020-05-09 07:03 | NUR ---
DIRECTOR COMMUNITY CENTER OPENING NOTE RECEIVED PT AWAKE IN BED AT THIS TIME. AOX4. NO SOB NOTED, NO S/ S OF ANY ACUTE DISTRESS NOTED. NO C/O PAIN AT THIS TIME. RESPIRATIONS ARE EVEN AND UNLABORED. PT ON EXTERNAL TELE TYPIST READING SR IN THE 70S. IV ACCESS NOTED IN RAC G#20, PATENT, INTACT AND FLUSHING WELL. FALL AND SAFETY PRECAUTION IN PLACE AND MAINTAINED AT ALL TIMES. BED IN LOWEST LOCKED POSITION, HOB ELEVATED, SIDE RAILS UP X 2, CALL LIGHT WITHIN REACH. WILL CONTINUE TO MONITOR
--- NOTE | 2020-05-09 08:00 | NUR ---
PT NOTED WITH VTE 4, DVT PUMPS ORDERED, FOLLOW UP WITH CENTRAL SUPPLY. PT NOW ON DVT PUMPS, WILL CONTINUE TO MONITOR
[2020-05-09 08:21] LABS: BASOPHILS % (AUTO) 0.2 % (0.0-2.0); EOSINOPHILS % (AUTO) 0.5 % (0.0-6.0); HEMATOCRIT 39 % (39-51); HEMOGLOBIN 12.9 g/dL (13.5-17.5); LYMPHOCYTES # (AUTO) 0.6 /CMM (0.8-4.8); LYMPHOCYTES % (AUTO) 14.9 % (20.0-44.0); MEAN CORPUSCULAR HGB CONC 33 g/dl (31.0-36.0); MEAN CORPUSCULAR VOLUME 102 fL (80-96); MONOCYTES # (AUTO) 0.3 /CMM (0.1-1.30); MONOCYTES % (AUTO) 8.9 % (2.0-12.0); NEUTROPHILS # (AUTO) 2.9 /CMM (1.8-8.9); NEUTROPHILS % (AUTO) 75.5 % (43.0-81.0); PLATELET COUNT (AUTO) 106 /CMM (150-450); RED BLOOD CELL COUNT(AUTO) 3.84 MIL/uL (4.5-6.0); WHITE BLOOD COUNT (AUTO) 3.8 K/uL (4.3-11.0)
[2020-05-09] MEDS ORDERED: TRAMADOL HCL 50 MG TABLET PO PRN (08:30)
[2020-05-09 08:45] VITALS: BP 139/70
[2020-05-09 09:13] LABS: BILIRUBIN,TOTAL 0.9 mg/dL (0.2-1.0); CALCIUM, SERUM 8.1 mg/dL (8.5-10.1); POTASSIUM 4.1 mmol/L (3.5-5.1); TOTAL PROTEIN, SERUM 6.3 g/dL (6.4-8.2)
[2020-05-09] MEDS: IV NS 0.9% 1,000 ML IV PRN (09:20)
[2020-05-09] MEDS: DOXYCYCLINE HYCLATE (100 MG) 100 MG TABLET PO SCH ×2 (09:21→16:16)
[2020-05-09] MEDS: ACETAMINOPHEN 325 MG TABLET PO PRN (09:21)
[2020-05-09] MEDS: FOLIC ACID 1 MG TABLET PO SCH (09:21)
[2020-05-09] MEDS: ASPIRIN 81 MG TAB.CHEW PO SCH (09:21)
--- NOTE | 2020-05-09 09:21 | NUR ---
PT NOTED WITH TEMP OF 99.9 AT THIS TIME. COOLING MEASURES IN PLACE, SHEETS TAKEN OFF, ROOM KEEP COOL, ICE PACK ON PT, TYLENOL 650MG PO Q6HR PRN FOR FEVER ADMINISTERED AT THIS TIME PER ORDER. RENNY PIMENTEL MADE AWARE. WILL CONTINUE TO MONITOR
--- NOTE | 2020-05-09 10:30 | NUR ---
REASSESSED PT'S TEMP. PT NOTED WITH TEMP OF 98.0 AT THIS TIME. COOLING MEASURES IN PLACE, SHEETS TAKEN OFF, ROOM KEEP COOL, ICE PACK ON PT, WILL CONTINUE TO MONITOR
[2020-05-09 10:52] LABS: THYROID STIMULATING HORMONE 0.685 uIU/mL (0.358-3.74)
[2020-05-09 12:26] VITALS: BP 125/65
[2020-05-09 17:17] VITALS: BP 123/68
--- NOTE | 2020-05-09 19:03 | NUR ---
RN CLOSING NOTES PT RESTING IN BED AT THIS TIME. PT REMAINED STABLE THROUGHOUT SHIFT. ALL CARE, NEEDS, MEDICATIONS AND TREATMENT ADMINISTERED ANTICIPATED PER ORDER. SAFETY PRECAUTION IN PLACE AND MAINTAINED AT ALL TIMES. BED IN LOWEST LOCKED POSITION, HOB ELEVATED, RAILS UP X 2, CALL LIGHT WITHIN REACH. WILL ENDORSE TO LAUNDRY ROUTEMAN NURSE
[2020-05-09 20:00] VITALS: BP 136/71
--- NOTE | 2020-05-09 20:00 | NUR ---
DAY CARE ASSISTANT OPENING NOTE: Patient in bed awake, alert, and oriented x4. Patient able to make needs known. Patient on cardiac monitoring, sinus rhythm. Patient able to stand up and ambulate. Patient is breathing well on room air with no SOB and no acute respiratory distress. IV access noted on right AC, 20 gauge, dry and intact, patent, no redness, or infiltration. Safety precaution is in place, bed is in the lowest level, bed is locked, side rails x2 are up, and call light is within reach. Will continue to monitor.
[2020-05-09] MEDS: CEFTRIAXONE 1 G in IV D5W 50 ML IV SCH (20:20)
[2020-05-09] MEDS: ENOXAPARIN SODIUM 40 MG/0.4 ML DISP.SYRIN SQ SCH (20:21)
[2020-05-10] VITALS: BP 142/78
[2020-05-10 04:00] VITALS: BP_SYST 123; BP_SYST 128; BP_DIAS 68; BP_DIAS 69; BP_DIAS 70
[2020-05-10] MEDS: IV NS 0.9% 1,000 ML IV PRN ×2 (04:52→22:37)
[2020-05-10 07:05] LABS: POTASSIUM 3.9 mmol/L (3.5-5.1)
--- NOTE | 2020-05-10 07:19 | NUR ---
DIESEL TECHNICIAN CLOSING NOTE: Patient in bed sleeping comfortably. Patient on room air and breathing well with no apparent respiratory distress or SOB. Safety precaution is in place, bed is in the lowest level, bed is locked, side rails x2 are up, and call light is within reach. Will endorse to next shift.
--- NOTE | 2020-05-10 07:25 | NUR ---
RN OPENING NOTE: Received patient in bed. Awake, alert and oriented x4. Able to make needs known. Isolation precaution in place for COVID-19. On room air and tolerating well. No SOB and not in respiratory distress, saturation noted @ 93%. Offered oxygen at bedside, patient declined. Informed patient should he feel the need to use oxygen that it is available at bedside, acknowledged and accepted. Tele monitor showing sinus rhythm in the 70s. IV site clean, dry, patent and intact. No pain noted nor reported. Call light in reach. Bed locked, low and at semi-hutton's position. Side rails up x3. Safety ensured and observed. Will check orthostatic BP. Will continue to monitor.
[2020-05-10 08:00] VITALS: BP_SYST 121; BP_SYST 131; BP_SYST 134; BP_DIAS 71; BP_DIAS 72; BP_DIAS 74
[2020-05-10] MEDS: ASPIRIN 81 MG TAB.CHEW PO SCH (10:44)
[2020-05-10] MEDS: FOLIC ACID 1 MG TABLET PO SCH (10:44)
[2020-05-10] MEDS: DOXYCYCLINE HYCLATE (100 MG) 100 MG TABLET PO SCH ×2 (10:44→15:18)
[2020-05-10 12:00] VITALS: BP 126/73
[2020-05-10] MEDS: ACETAMINOPHEN 325 MG TABLET PO PRN ×2 (17:18→21:12)
[2020-05-10 18:34] VITALS: BP 131/71
--- NOTE | 2020-05-10 18:56 | NUR ---
RN CLOSING NOTE: Patient remains in bed. Awake, alert and oriented x4. Able to make needs known. Isolation precaution in place for COVID-19. On room air and tolerating well. No SOB and not in respiratory distress, saturation noted @ 96%. Oxygen ready at bedside. Tele monitor showing sinus rhythm in the 80s. IV site clean, dry, patent and intact. No pain noted nor reported. Call light in reach. Bed locked, low and at semi-hutton's position. Side rails up x3. Safety ensured and observed.Due medications given. Treatment given as ordered. Patient and Amanda (daughter) aware of current treatment plan. Will endorse to oncoming shift for NIKI.
--- NOTE | 2020-05-10 19:45 | NUR ---
METER RECORD CLERK NOTES RECEIVED RESTING COMFORTABLY ON BED,BREATHING REGULAR,NOT IN ANY FORM OF DISTRESS.WITH IVF NS AT 100ML/HR RATE INFUSING VIA IV PUMP,SITE PATENT ON LEFT AC.DENIES PAIN AT THE MOMENT.DVT IN PUMP IN USED FOR DVT DVT PROPHYLAXIS.ISOLATION PRECAUTION FOR COVID POSITIVE.CALL LIGHT IN REACH,NEEDS ANTICIPATED.
[2020-05-10 20:00] VITALS: BP 133/70
--- NOTE | 2020-05-10 20:00 | NUR ---
LIVE GAMES DEALER NOTES DUE JUAN EDOUARD
[2020-05-10] MEDS: CEFTRIAXONE 1 G in IV D5W 50 ML IV SCH (20:03)
--- NOTE | 2020-05-10 21:12 | NUR ---
DINING SERVICES DIRECTOR NOTES ORAL TEMP OF 99.5,SKIN WARM TO THE TOUCH,MEDICATED WITH TYLENOL 650MG PO ORDERED PRN FOR FEVER.
[2020-05-10] MEDS: ENOXAPARIN SODIUM 40 MG/0.4 ML DISP.SYRIN SQ SCH (21:13)
[2020-05-11] VITALS: BP 126/72
[2020-05-11 00:03] VITALS: BP 128/72
[2020-05-11 03:25] VITALS: BP_SYST 134; BP_SYST 152; BP_DIAS 67; BP_DIAS 84
[2020-05-11] MEDS: ACETAMINOPHEN 325 MG TABLET PO PRN ×2 (03:29→16:51)
--- NOTE | 2020-05-11 03:29 | NUR ---
PETROPHYSICIST NOTES ORAL TEMP OF 100.0,TYLENOL 650MG PO GIVEN ORDERED PRN FOR INCREASED TEMP.
[2020-05-11 04:00] VITALS: BP 152/84
--- NOTE | 2020-05-11 06:30 | NUR ---
BOOTH CLEANER NOTES NEVA FROM RADIOLOGY CALLED,INFORMING NURSE THAT PATIENT WILL GO FOR MRCP WITHOUT CONTRAST TODAY BEFORE 10 A.M. PATIENT INFORMED AND MAKE HIM NPO FOR BREAKFAST,OKAY FOR MEDS.
--- NOTE | 2020-05-11 06:37 | NUR ---
INTERNATIONAL MANAGER NOTES RESTING COMFORTABLY ON BED,NO SOB,CALM AND QUIET,IVF INFUSING,INSTRUCTED NPO FOR NOW FOR THE MRCP TO BE DONE BEFORE 10 A.M. THIS MORNING.LATEST ORAL TEMP 97.7.CALL LIGHT IN REACH,NEEDS ATTENDED.WILL ENDORSE TO ESAU CALI FOR NIKI.
--- NOTE | 2020-05-11 07:30 | NUR ---
RN Opening Note Received patient in bed, AO x 3-4, able to responds all stimuli. Noticed dry cough occasionally, respiratory even and unlabored with oxygen at 2 LPM. Skin is warm to touch, keep clean.dry, intact IV site. Kept bed in lock with elevated HOB, for ensure airway and aspiration precaution, and remain lower position of bed fed safety. Will continue to monitor.
[2020-05-11 08:29] LABS: BASOPHILS % (AUTO) 0.2 % (0.0-2.0); EOSINOPHILS % (AUTO) 1.2 % (0.0-6.0); HEMATOCRIT 38 % (39-51); HEMOGLOBIN 12.7 g/dL (13.5-17.5); LYMPHOCYTES # (AUTO) 0.5 /CMM (0.8-4.8); LYMPHOCYTES % (AUTO) 12.9 % (20.0-44.0); MEAN CORPUSCULAR HGB CONC 34 g/dl (31.0-36.0); MEAN CORPUSCULAR VOLUME 100 fL (80-96); MONOCYTES # (AUTO) 0.3 /CMM (0.1-1.30); MONOCYTES % (AUTO) 8.8 % (2.0-12.0); NEUTROPHILS # (AUTO) 2.7 /CMM (1.8-8.9); NEUTROPHILS % (AUTO) 76.9 % (43.0-81.0); PLATELET COUNT (AUTO) 111 /CMM (150-450); RED BLOOD CELL COUNT(AUTO) 3.76 MIL/uL (4.5-6.0); WHITE BLOOD COUNT (AUTO) 3.5 K/uL (4.3-11.0)
[2020-05-11 08:39] LABS: CALCIUM, SERUM 8.2 mg/dL (8.5-10.1); CREATININE 0.9 mg/dL (0.6-1.3); POTASSIUM 3.9 mmol/L (3.5-5.1)
[2020-05-11] MEDS: DOXYCYCLINE HYCLATE (100 MG) 100 MG TABLET PO SCH ×2 (09:00→16:43)
[2020-05-11] MEDS: ASPIRIN 81 MG TAB.CHEW PO SCH (09:00)
[2020-05-11] MEDS: FOLIC ACID 1 MG TABLET PO SCH (09:00)
--- NOTE | 2020-05-11 16:30 | NUR ---
Patient discharge to [facility] given report Deedee CALI include continue to ATB/ Doxycycline 100 mg BID x 7days.
--- NOTE | 2020-05-11 17:13 | NUR ---
2EMTs picked up patient, given report verbally, pt noticed fever over 100, Tylenol 650mg administered before patient leave.
== END 2020-05-12 03:16 | DRG 177 ==
LOC: ER 12:12 → TELE2 16:25 → MEDSG2 18:08 → TELE2 05-09 04:35
PROVIDERS: ADMIT Nurse Practitioner Acute Care; ATTEND Nurse Practitioner Acute Care
DX: U07.1 COVID-19 (principal); J96.01 Acute respiratory failure with hypoxia; J12.89 Other viral pneumonia; J44.0 Chronic obstructive pulmonary disease with (acute) lower respiratory infection; D61.818 Other pancytopenia; E78.5 Hyperlipidemia, unspecified; I25.10 Atherosclerotic heart disease of native coronary artery without angina pectoris; Z92.3 Personal history of irradiation; Z87.891 Personal history of nicotine dependence; Z85.46 Personal history of malignant neoplasm of prostate; Z92.21 Personal history of antineoplastic chemotherapy; Z85.79 Personal history of other malignant neoplasms of lymphoid, hematopoietic and related tissues; J40 Bronchitis, not specified as acute or chronic; R74.0 Nonspecific elevation of levels of transaminase and lactic acid dehydrogenase [LDH]; K83.8 Other specified diseases of biliary tract; D46.9 Myelodysplastic syndrome, unspecified; I10 Essential (primary) hypertension; Z79.82 Long term (current) use of aspirin
CPT/HCPCS: 36415; 71045-TC; 74181-TC; 76700-TC; 80048-TC; 80053-TC; 80076-TC; 82728-TC; 82962-TC; 83540-TC; 83615-TC; 83880; 84439-TC; 84443-TC; 84484-TC; 85025-TC; 85378-TC; 86140-TC; 87081-TC; 87899; C9803-CS; G0378; J0696; J1650; J3490; J7030; J7040; J7050; J7060; U0003-CS

== ENCOUNTER 2020-06-10 19:56 | Inpatient (IN) | payer MEDICARE, OTHER ==
[~2020-06-10] VITALS: Ht 170.2 cm; Wt 64.4 kg
[~2020-06-10 19:56] MED LIST changes: +ASPI-1169 PO; -ATOR20TA PO; +CEFU500T66 PO; -FLUT1DIS3 IH; -HYDR-4384 PO; -PRED10TA PO; -PRED20TA PO; +ROSU10TA29 PO; +TRAM50TA2 PO; -ZOLP5TAB2 PO
--- NOTE | 2020-06-10 20:25 | NUR ---
BIBRA 878 C/O NOSE BLEED X3 DAYS. PT ADMITT HERE FOR PNEUMONIA X3 WEEKS AGO. PT AAOX4, VSS. RR EVEN & UNLABORED. DENIES CP, SOB, DIZZINESS, N/V AT THIS TIME. PT SEEN & EVAL'D BY STACIE NERI. WILL CONT TO MONITOR.
[2020-06-10 20:33] LABS: BASOPHILS # (AUTO) 0.1 /CMM (0.0-0.2); BASOPHILS % (AUTO) 1.1 % (0.0-2.0); EOSINOPHILS % (AUTO) 5.7 % (0.0-6.0); HEMATOCRIT 36 % (39-51); HEMOGLOBIN 11.8 g/dL (13.5-17.5); LYMPHOCYTES # (AUTO) 0.9 /CMM (0.8-4.8); LYMPHOCYTES % (AUTO) 16.6 % (20.0-44.0); MEAN CORPUSCULAR HGB CONC 33 g/dl (31.0-36.0); MEAN CORPUSCULAR VOLUME 100 fL (80-96); MONOCYTES # (AUTO) 0.6 /CMM (0.1-1.30); MONOCYTES % (AUTO) 12.3 % (2.0-12.0); NEUTROPHILS # (AUTO) 3.3 /CMM (1.8-8.9); NEUTROPHILS % (AUTO) 64.3 % (43.0-81.0); PLATELET COUNT (AUTO) 253 /CMM (150-450); RED BLOOD CELL COUNT(AUTO) 3.56 MIL/uL (4.5-6.0); WHITE BLOOD COUNT (AUTO) 5.2 K/uL (4.3-11.0)
[2020-06-10] MEDS ORDERED: DOXYCYCLINE 100 MG in IV D5W 100 ML IV SCH (21:00)
[2020-06-10 21:15] LABS: ALANINE AMINOTRANSFERASE 30 U/L (12-78); ALBUMIN 2.9 g/dL (3.4-5.0); ALKALINE PHOSPHATASE 64 U/L (46-116); ASPARTATE AMINOTRANSFERASE 18 U/L (15-37); BILIRUBIN,DIRECT 0.2 mg/dL (0.0-0.2); BILIRUBIN,TOTAL 0.9 mg/dL (0.2-1.0); CALCIUM, SERUM 8.7 mg/dL (8.5-10.1); CARBON DIOXIDE 27 mmol/L (21-32); CHLORIDE 101 mmol/L (98-107); CREATININE 1.1 mg/dL (0.6-1.3); GLUCOSE 154 mg/dL (74-106); POTASSIUM 4.2 mmol/L (3.5-5.1); SODIUM SERUM 138 mmol/L (136-145); TOTAL PROTEIN, SERUM 7.2 g/dL (6.4-8.2); UREA NITROGEN, BLOOD 17 mg/dL (7-18)
[2020-06-10] MEDS ORDERED: ONDANSETRON HCL/PF 4 MG/2 ML VIAL IVP PRN (22:00)
[2020-06-10] MEDS ORDERED: MAGNESIUM HYDROXIDE 30 ML UDC PO PRN (22:00)
[2020-06-10] MEDS ORDERED: ENOXAPARIN SODIUM 30 MG/0.3 ML DISP.SYRIN SQ SCH (22:00)
[2020-06-10] MEDS ORDERED: MAG HYDROX/AL HYDROX/SIMETH 30 ML UDC PO PRN (22:00)
[2020-06-10] MEDS ORDERED: TEMAZEPAM 15 MG CAPSULE PO PRN (22:00)
[2020-06-10] MEDS ORDERED: Z GUARD REMEDY 2 OZ OINT TP PRN (22:00)
[2020-06-10] MEDS ORDERED: ACETAMINOPHEN 325 MG TABLET PO PRN (22:00)
[2020-06-10] MEDS ORDERED: MORPHINE SULFATE INJ 2 MG/ML DISP.SYRIN IV PRN (22:00)
[2020-06-10] MEDS ORDERED: HYDROCODONE/APAP 5/325MG TABLET PO PRN (22:00)
--- NOTE | 2020-06-10 22:30 | NUR ---
bed 208-2
--- NOTE | 2020-06-10 23:35 | NUR ---
REPORT GIVEN TO VIRAJ CAMPUZANO FOR NIKI.
--- NOTE | 2020-06-10 23:40 | NUR ---
TELE/RN NOTE S REPORT GIVEN FROM ER BY VIRAJ ANDERSON. PATIENT WILL BE GOING TO ROOM 208.
[2020-06-11] VITALS: BP 127/75
--- NOTE | 2020-06-11 | NUR ---
TELE/RN OPENING NOTES RECEIVED PATIENT FROM ER VIA GURNEY ESCORTED BY COLLEGE SPORTS COACH AND RN, TO ROOM 208. PATIENT IS ALERT AND ORIENTED X 4, CAN UNDERSTAND CITIZEN OF [place]. PATIENT IS ON 2L O2 TOLERATING WELL. NO SIGNS OF SOB OR RESPIRATORY DISTRESS NOTED. PATIENT DENIES PAIN AND CHEST PAIN AT THIS TIME. PATIENT IN NO SIGNS OF DISTRESS. PATIENT HAD IV ACCESS ON LEFT AC INTACT FLUSHING WELL. PATIENT HAS SIGN BELONGINGS LIST. PATIENT IS ABLE TO AMBULATE BY SELF, STEADY GAIT. SAFETY MEASURES ARE IN PLACE, BED IS LOCKED AND PLACED IN THE LOW POSITION, SIDE RAILS UP X 2. CALL LIGHT IS WITHIN EASY REACH OF PATIENT. WILL CONTINUE TO MONITOR THROUGH OUT SHIFT.
[2020-06-11] MEDS: IV NS 0.9% 1,000 ML IV PRN ×2 (00:06→16:05)
[2020-06-11 04:00] VITALS: BP 118/76
--- NOTE | 2020-06-11 06:40 | NUR ---
MS/RN CLOSING NOTES PATIENT IN BED RESTING. PATIENT IS ALERT AND ORIENTED X 3. NO SIGNS OF RESPIRATORY DISTRESS OR SOB NOTED. BREATHING IS EVEN AND UNLABORED. TELE READING SR 80'S.PATIENT HAS LEFT AC #18G RUNNING NS AT 75ML/HR. ALL PATIENTS NEEDS HAVE BEEN MET DURING SHIFT. SAFETY MEASURES ARE IN PLACE, BED IS LOCKED AND PLACED IN THE LOW POSITION, SIDE RAILS UP X 2. CALL LIGHT IS IN EASY REACH OF PATIENT. WILL ENDORSE CARE TO DAY SHIFT NURSE.
[2020-06-11 06:56] LABS: BASOPHILS % (AUTO) 0.8 % (0.0-2.0); EOSINOPHILS % (AUTO) 6.2 % (0.0-6.0); HEMATOCRIT 34 % (39-51); HEMOGLOBIN 11.2 g/dL (13.5-17.5); LYMPHOCYTES # (AUTO) 0.8 /CMM (0.8-4.8); LYMPHOCYTES % (AUTO) 18.6 % (20.0-44.0); MEAN CORPUSCULAR HGB CONC 33 g/dl (31.0-36.0); MEAN CORPUSCULAR VOLUME 101 fL (80-96); MONOCYTES # (AUTO) 0.6 /CMM (0.1-1.30); MONOCYTES % (AUTO) 14.2 % (2.0-12.0); NEUTROPHILS # (AUTO) 2.7 /CMM (1.8-8.9); NEUTROPHILS % (AUTO) 60.2 % (43.0-81.0); PLATELET COUNT (AUTO) 244 /CMM (150-450); RED BLOOD CELL COUNT(AUTO) 3.36 MIL/uL (4.5-6.0); WHITE BLOOD COUNT (AUTO) 4.5 K/uL (4.3-11.0)
[2020-06-11 07:18] LABS: THYROID STIMULATING HORMONE 0.396 uIU/mL (0.358-3.74)
[2020-06-11 07:30] LABS: CALCIUM, SERUM 8.7 mg/dL (8.5-10.1); CREATININE 0.9 mg/dL (0.6-1.3); PHOSPHORUS 3.9 mg/dL (2.5-4.9); POTASSIUM 4.3 mmol/L (3.5-5.1)
--- NOTE | 2020-06-11 07:47 | NUR ---
TELE/RN OPENING NOTES RECEIVED PATIENT IS ON BED AWAKE, ALERT AND ORIENTED X4. PATIENT IN NO APPARENT RESPIRATORY DISTRESS NOTED. DENIES PAIN AT THIS TIME. TELE MONITOR IN PLACED SR 68 BPM. WILL CONTINUE TO MONITOR.
[2020-06-11] MEDS: PANTOPRAZOLE 40 MG TABLET.DR PO SCH (07:54)
[2020-06-11] MEDS: DOXYCYCLINE HYCLATE (100 MG) 100 MG TABLET PO SCH ×2 (08:25→17:38)
[2020-06-11] MEDS: ENOXAPARIN SODIUM 40 MG/0.4 ML DISP.SYRIN SQ SCH (08:26)
[2020-06-11] MEDS: CEFEPIME 2 GM in IV D5W 100 ML IV SCH ×3 (08:38→21:41)
[2020-06-11] MEDS ORDERED: LORA2TAB95 PO (08:46)
[2020-06-11] MEDS ORDERED: MULT-447 PO (08:46)
[2020-06-11] MEDS ORDERED: CEFEPIME 1 GM in IV D5W 50 ML IV SCH ×4 (09:00)
[2020-06-11 18:55] VITALS: BP 118/76
[2020-06-11] MEDS ORDERED: REMDESIVIR (INVESTIGATIONAL) 100 MG in IV NS 0.9% 230 ML IV SCH (19:00)
[2020-06-11] MEDS ORDERED: REMDESIVIR (INVESTIGATIONAL) 200 MG in IV NS 0.9% 210 ML IV ONE (19:00)
--- NOTE | 2020-06-11 19:22 | NUR ---
TELE/RN CLOSING NOTES PATIENT IS ON BED. ALERT AND ORIENTED X4. PATIENT IN NO APPARENT RESPIRATORY DISTRESS NOTED. DENIES PAIN AT OF PAIN AT THIS TIME. PATIENT IN TELE MONITOR READING SR - ST 70- 117 BPM. IV ACCESS AT LEFT UPPER ARM # 20 G WITH IV FLUID OF NS 1 L AT 75ML/HR ON AND INFUSING WELL. SEEN AND EXAMINED BY MD WITH ORDERS MADE AND CARRIED OUT. ALL DUE MEDICATION WAS GIVEN. SAFETY PRECAUTION WAS IN PLACED. BED IN LOWEST POSITION AND LOCKED. SIDERAILS UP X2. CALL LIGHT WITHIN REACH. WILL ENDORSED TO CORN SHELLER OPERATOR FOR NIKI.
--- NOTE | 2020-06-11 19:30 | NUR ---
RN NOTES RECEIVED PT. AWAKE ON BED, A/OX3, AMBULATORY DENIES PAIN, NO SOB, SR ON TELE MONITOR HR-90, NOT IN DISTRESS, CALL LIGHT WITHIN REACH, SIDERAILSUPX2, CONTINUE TO MONITOR
[2020-06-11 19:47] VITALS: BP 105/69
[2020-06-11 20:00] VITALS: BP 105/69
[2020-06-11] MEDS: DEXAMETHASONE 4 MG TABLET PO SCH (20:33)
--- NOTE | 2020-06-11 20:55 | NUR ---
RN NOTES PATIENT WAS ASKING FOR LORAZEPAM, GOT AN ORDER FROM DOUGLAS GALARZA, LORAZEPAM 1 MG PO X1 ., ORDER NOTED AND CARRIED OUT
[2020-06-11 21:05] LABS: C-REACTIVE PROTEIN 9.4 mg/dL (0.0-0.9)
[2020-06-11] MEDS ORDERED: LORAZEPAM 1 MG TABLET PO ONE (22:00)
[2020-06-11 23:58] VITALS: BP 112/58
[2020-06-12] VITALS (7 sets, daily range): BP systolic 112–133; BP diastolic 58–81
[2020-06-12] MEDS: IV NS 0.9% 1,000 ML IV PRN ×2 (02:37→18:30)
[2020-06-12] MEDS: CEFEPIME 2 GM in IV D5W 100 ML IV SCH ×3 (04:55→20:25)
--- NOTE | 2020-06-12 06:44 | NUR ---
RN NOTES AWAKE, MORNING CARE RENDERED, DENIES PAIN, NO SOB, CALL LIGHT WITHIN REACH, SIDERAILSUPX2, PT. NEEDS ATTENDED
[2020-06-12 06:56] LABS: BASOPHILS % (AUTO) 0.1 % (0.0-2.0); EOSINOPHILS % (AUTO) 0.3 % (0.0-6.0); HEMATOCRIT 40 % (39-51); LYMPHOCYTES # (AUTO) 0.6 /CMM (0.8-4.8); LYMPHOCYTES % (AUTO) 6.2 % (20.0-44.0); MEAN CORPUSCULAR HGB CONC 33 g/dl (31.0-36.0); MEAN CORPUSCULAR VOLUME 101 fL (80-96); MONOCYTES # (AUTO) 0.1 /CMM (0.1-1.30); MONOCYTES % (AUTO) 1.3 % (2.0-12.0); NEUTROPHILS # (AUTO) 8.3 /CMM (1.8-8.9); NEUTROPHILS % (AUTO) 92.1 % (43.0-81.0); PLATELET COUNT (AUTO) 307 /CMM (150-450); RED BLOOD CELL COUNT(AUTO) 3.94 MIL/uL (4.5-6.0)
[2020-06-12 07:15] LABS: CALCIUM, SERUM 8.8 mg/dL (8.5-10.1); MAGNESIUM 2.2 mg/dL (1.8-2.4); PHOSPHORUS 3.9 mg/dL (2.5-4.9); POTASSIUM 4.3 mmol/L (3.5-5.1)
--- NOTE | 2020-06-12 07:15 | NUR ---
MINE PATROL NOTES PATIENT IN BED ALERT ORIENTED X 4. NO ACUTE DISTRESS NOTED. BREATHING UNLABORED. NO SOB NOTED. IV ACCESS PATENT AND INTACT, NO REDNESS, NO SWELLING NOTED.SAFETY MEASURES IN PLACE. CALL LIGHT WITHIN REACH. WILL CONTINUE TO MONITOR ACCORDINGLY.
[2020-06-12] MEDS: PANTOPRAZOLE 40 MG TABLET.DR PO SCH (07:59)
[2020-06-12] MEDS: DEXAMETHASONE 4 MG TABLET PO SCH (09:45)
[2020-06-12] MEDS: DOXYCYCLINE HYCLATE (100 MG) 100 MG TABLET PO SCH ×2 (09:45→17:19)
[2020-06-12] MEDS: ENOXAPARIN SODIUM 40 MG/0.4 ML DISP.SYRIN SQ SCH (09:46)
[2020-06-12 14:48] LABS: ABG BASE EXCESS -3.1 mmol/L; ABG OXYGEN SATURATION 93.9 % (92.0-98.5); ABG PCO2 31.3 mmHg (35.0-45.0); ABG PH 7.431 (7.350-7.450); ABG PO2 71.1 mmHg (75.0-100.0); AaDO2 120.4 mmHg; COHb 0.5 % (0.5-1.5); MetHb 0.1 % (0.0-1.5); O2Hb 93.3 % (94.0-97.0); SITE, ABG Left Radial; VENT MODE, BG 3LPM N/C
[2020-06-12 15:26] LABS: ABG BASE EXCESS -2.3 mmol/L; ABG OXYGEN SATURATION 92.6 % (92.0-98.5); ABG PCO2 29.2 mmHg (35.0-45.0); ABG PH 7.465 (7.350-7.450); ABG PO2 61.3 mmHg (75.0-100.0); AaDO2 53.5 mmHg; COHb 0.5 % (0.5-1.5); MetHb 0.1 % (0.0-1.5); SITE, ABG Left Radial; VENT MODE, BG R/A
--- NOTE | 2020-06-12 18:56 | NUR ---
ENGINE DYNAMOMETER TESTER NOTES PATIENT IN BED ALERT ORIENTED X 4. NO ACUTE DISTRESS NOTED. BREATHING UNLABORED. NO SOB NOTED. PATIENT ON ROOM AIR SATURATING 94-96%. IV ACCESS PATENT AND INTACT, NO REDNESS, NO SWELLING NOTED.NEEDS ATTENDED AND ANTICIPATED. KEPT CLEAN DRY AND COMFORTABLE. SAFETY MEASURES IN PLACE. CALL LIGHT WITHIN REACH. WILL ENDORSE TO NIGHT NURSE FOR CONTINUITY OF CARE.
--- NOTE | 2020-06-12 19:36 | NUR ---
LAWYER OPENING NOTES PATIENT AWAKE IN BED. A/OX4; ABLE TO VERBALIZE NEEDS. ON RA; DENIES SOB; BREATHING IS EVEN AND UNLABORED. NO C/O PAIN AT THIS TIME. TELE MONITOR READING NSR HEART RATE 98. IV PRESENT ON LEFT AC, SIZE 18, INTACT & PATENT WITH NS RUNNING AT 75 ML/HR. CONTACT/DROPLET PRECAUTIONS IN PLACE FOR POSITIVE COVID 19. SAFETY MEASURES IN PLACE AND PATIENT'S NEEDS MET. BED LOCKED, HOB ELEVATED, SIDE RAILS X2, CALL LIGHT WITHIN REACH. WILL CONTINUE TO MONITOR.
[2020-06-13] VITALS (8 sets, daily range): BP systolic 101–131; BP diastolic 62–76
[2020-06-13] MEDS ORDERED: LORAZEPAM 1 MG TABLET PO PRN
[2020-06-13] MEDS ORDERED: TRAMADOL HCL 50 MG TABLET PO PRN
[2020-06-13] MEDS: CEFEPIME 2 GM in IV D5W 100 ML IV SCH ×3 (05:09→21:00)
[2020-06-13] MEDS: PANTOPRAZOLE 40 MG TABLET.DR PO SCH (06:31)
--- NOTE | 2020-06-13 06:57 | NUR ---
INDUSTRIAL HIRE SALES ASSISTANT CLOSING NOTES NO ADVERSE EVENTS DURING SHIFT. PATIENT AWAKE. A/OX4. ON RA; DENIES SOB; BREATHING IS EVEN AND UNLABORED. NO C/O PAIN AT THIS TIME. TELE MONITOR READING NSR HEART RATE 73. IV PRESENT ON LEFT AC, SIZE 18, INTACT & PATENT WITH NS RUNNING AT 75 ML/HR. SAFETY MEASURES IN PLACE AND PATIENT'S NEEDS MET. BED LOCKED, HOB ELEVATED, SIDE RAILS X2, CALL LIGHT WITHIN REACH. WILL ENDORSE TO DAY SHIFT RN PLAN OF CARE.
[2020-06-13 07:00] LABS: BASOPHILS % (AUTO) 0.2 % (0.0-2.0); EOSINOPHILS % (AUTO) 1.2 % (0.0-6.0); HEMATOCRIT 32 % (39-51); HEMOGLOBIN 10.5 g/dL (13.5-17.5); LYMPHOCYTES # (AUTO) 0.5 /CMM (0.8-4.8); LYMPHOCYTES % (AUTO) 4.6 % (20.0-44.0); MEAN CORPUSCULAR HGB CONC 33 g/dl (31.0-36.0); MEAN CORPUSCULAR VOLUME 100 fL (80-96); MONOCYTES # (AUTO) 0.5 /CMM (0.1-1.30); MONOCYTES % (AUTO) 4.1 % (2.0-12.0); NEUTROPHILS # (AUTO) 10.8 /CMM (1.8-8.9); NEUTROPHILS % (AUTO) 89.9 % (43.0-81.0); PLATELET COUNT (AUTO) 315 /CMM (150-450); RED BLOOD CELL COUNT(AUTO) 3.23 MIL/uL (4.5-6.0)
--- NOTE | 2020-06-13 07:25 | NUR ---
PASSENGER SERVICE MANAGER NOTES PATIENT RECEIVED IN BED, AWAKE, ALERT AND ORIENTED X 4. ON ROOM AIR WITH NO SIGNS OF RESPIRATORY DISTRESS WITH EVEN NON-LABORED BREATHING. ON FIFTH HAND, SINUS RHYTHM, 86. PATIENT PRESENTS WITH NO PAIN OR DISCOMFORT AT THIS TIME. IV ACCESS INTACT AND PATENT, SKIN WARM AND DRY TO TOUCH. ISOLATION PRECAUTIONS IMPLEMENTED. SAFETY PRECAUTIONS IMPLEMENTED WITH BED LOCKED, BED IN THE LOWEST POSITION, BILATERAL SIDE RAILS UP, AND CALL LIGHT WITHIN EASY REACH OF PATIENT. WILL CONTINUE TO MONITOR.
[2020-06-13 07:26] LABS: CALCIUM, SERUM 8.6 mg/dL (8.5-10.1); CREATININE 0.8 mg/dL (0.6-1.3); MAGNESIUM 2.1 mg/dL (1.8-2.4); PHOSPHORUS 3.8 mg/dL (2.5-4.9); POTASSIUM 5.3 mmol/L (3.5-5.1)
[2020-06-13] MEDS: FOLIC ACID 1 MG TABLET PO SCH (09:00)
[2020-06-13] MEDS: DOXYCYCLINE HYCLATE (100 MG) 100 MG TABLET PO SCH ×2 (09:00→16:02)
[2020-06-13] MEDS ORDERED: SODIUM POLYSTYRENE SULFONATE 15 G/60 ML BOTTLE PO ONE (09:00)
[2020-06-13] MEDS: DEXAMETHASONE 4 MG TABLET PO SCH (09:01)
[2020-06-13] MEDS: ASPIRIN 81 MG TAB.CHEW PO SCH (09:01)
[2020-06-13] MEDS: MULTIPLE VIT (LYCOPENE/FA/MV,CA,IRON,MIN/LUT)1 TAB PO SCH (09:01)
[2020-06-13] MEDS: ENOXAPARIN SODIUM 40 MG/0.4 ML DISP.SYRIN SQ SCH (09:02)
[2020-06-13] MEDS: IV NS 0.9% 1,000 ML IV PRN (09:12)
--- NOTE | 2020-06-13 18:15 | NUR ---
CUFF PRESSER NOTES PATIENT IN BED, AWAKE, ALERT AND ORIENTED X 4. ON ROOM AIR WITH NO SIGNS OF RESPIRATORY DISTRESS, WITH EVEN NON-LABORED BREATHING AND NO SOB NOTED. ON AERONAUTICAL RESEARCH ENGINEER, NORMAL SINUS, 100'S PATIENT IV ACCESS INTACT AND PATENT INFUSING IV FLUIDS NORMAL SALINE @ 75ml/hr. SKIN KEPT WARM, CLEAN AND DRY. PATIENT PRESENTS WITH NO PAIN OR DISCOMFORT AT THIS TIME. MET ALL OF PATIENT'S NEEDS. ISOLATION PRECAUTIONS REMAINING. SAFETY PRECAUTIONS IMPLEMENTED WITH BED LOCKED, BED IN THE LOWEST POSITION, BILATERAL SIDE RAILS, AND CALL LIGHT WITHIN EASY REACH OF THE PATIENT. WILL ENDORSE PLAN OF CARE TO UPCOMING RN.
--- NOTE | 2020-06-13 19:40 | NUR ---
TELE/RN OPENING NOTES: RECEIVED PATIENT AWAKE IN BED. A/OX4; VERBALLY RESPONSIVE AND ABLE TO MAKE NEEDS KNOWN. ON RA, SATURATING WELL; NO SOB NOTED; BREATHING IS EVEN AND UNLABORED. NO C/O PAIN AT THIS TIME. TELE MONITOR READING NSR HEART RATE 73. IV PRESENT ON LEFT AC, #18G, INTACT & PATENT WITH NS RUNNING AT 75 MLS/HR. CONTACT/DROPLET PRECAUTIONS IN PLACE FOR POSITIVE COVID 19. SAFETY MEASURES IN PLACE. BED IN LOW, LOCKED POSITION, HOB ELEVATED, SIDE RAILS X2, CALL LIGHT WITHIN REACH. WILL CONTINUE TO MONITOR ACCORDINGLY.
[2020-06-13] MEDS ORDERED: ATORVASTATIN 10 MG TABLET PO SCH (22:00)
[2020-06-13] MEDS ORDERED: ATORVASTATIN 40 MG TABLET PO SCH (22:00)
--- NOTE | 2020-06-13 22:23 | NUR ---
TELE/RN NOTES: PT REQUESTED ATIVAN FOR HIS ANXIETY TO HELP HIM RELAX AT NIGHT. ADMINISTERED 2MG ATIVAN QHS ORDERED, VSS AND WNL. WILL CONT. TO MONITOR.
[2020-06-14] VITALS: BP 112/68
[2020-06-14] MEDS: IV NS 0.9% 1,000 ML IV PRN (02:18)
[2020-06-14] MEDS: CEFEPIME 2 GM in IV D5W 100 ML IV SCH ×2 (05:01→12:20)
--- NOTE | 2020-06-14 06:40 | NUR ---
TELE/RN CLOSING NOTES: PATIENT REMAINS RESTING IN BED. A/OX4; VERBALLY RESPONSIVE AND ABLE TO MAKE NEEDS KNOWN. ON RA, SATURATING WELL; NO SOB NOTED; BREATHING IS EVEN AND UNLABORED. NO C/O PAIN AT THIS TIME. TELE MONITOR READING NSR HEART RATE 60S. IV PRESENT ON LEFT AC, #18G, INTACT & PATENT WITH NS RUNNING AT 75 MLS/HR. CONTACT/DROPLET PRECAUTIONS IN PLACE FOR POSITIVE COVID 19. ALL DUE MEDS GIVEN ORDERED, ALL NURSING NEEDS MET AND RENDERED. SAFETY MEASURES IN PLACE. BED IN LOW, LOCKED POSITION, HOB ELEVATED, SIDE RAILS X2, CALL LIGHT WITHIN REACH. WILL ENDORSE TO DAY SHIFT FOR NIKI.
--- NOTE | 2020-06-14 07:31 | NUR ---
STORE GROCERY MERCHANDISER OPENING NOTE PATIENT IN BED RESTING COMFORTABLY. PATIENT IN NO ACUTE DISTRESS. NO SOB NOTED. PATIENT BREATHING IS EVEN AND UNLABORED. PATIENT SAFETY PRECAUTIONS IN PLACE. PATIENT ON CARDIAC MONITORING READING SINUS RHYTHM HR 68. PATIENT STATES NO PAIN AT THIS TIME. HOB IS ELEVATED. BED ALARM IS ON. MAINTAINED ISOLATION PRECAUTIONS. PATIENT BED IS LOCKED AND IN LOWEST POSITION. CALL LIGHT WITHIN REACH. WILL CONTINUE TO MONITOR.
[2020-06-14 07:41] LABS: BASOPHILS % (AUTO) 0.2 % (0.0-2.0); EOSINOPHILS % (AUTO) 4.1 % (0.0-6.0); HEMATOCRIT 28 % (39-51); HEMOGLOBIN 9.5 g/dL (13.5-17.5); LYMPHOCYTES # (AUTO) 0.6 /CMM (0.8-4.8); LYMPHOCYTES % (AUTO) 5.6 % (20.0-44.0); MEAN CORPUSCULAR HGB CONC 34 g/dl (31.0-36.0); MEAN CORPUSCULAR VOLUME 100 fL (80-96); MONOCYTES # (AUTO) 0.6 /CMM (0.1-1.30); MONOCYTES % (AUTO) 5.2 % (2.0-12.0); NEUTROPHILS # (AUTO) 9.1 /CMM (1.8-8.9); NEUTROPHILS % (AUTO) 84.9 % (43.0-81.0); PLATELET COUNT (AUTO) 294 /CMM (150-450); RED BLOOD CELL COUNT(AUTO) 2.81 MIL/uL (4.5-6.0); WHITE BLOOD COUNT (AUTO) 10.8 K/uL (4.3-11.0)
[2020-06-14 07:51] LABS: CALCIUM, SERUM 8.6 mg/dL (8.5-10.1); CREATININE 0.8 mg/dL (0.6-1.3); PHOSPHORUS 3.9 mg/dL (2.5-4.9); POTASSIUM 3.7 mmol/L (3.5-5.1)
[2020-06-14 08:00] VITALS: BP 130/87
[2020-06-14] MEDS: FOLIC ACID 1 MG TABLET PO SCH (08:21)
[2020-06-14] MEDS: PANTOPRAZOLE 40 MG TABLET.DR PO SCH (08:21)
[2020-06-14] MEDS: DOXYCYCLINE HYCLATE (100 MG) 100 MG TABLET PO SCH ×2 (08:21→16:03)
[2020-06-14] MEDS: ASPIRIN 81 MG TAB.CHEW PO SCH (08:21)
[2020-06-14] MEDS: MULTIPLE VIT (LYCOPENE/FA/MV,CA,IRON,MIN/LUT)1 TAB PO SCH (08:21)
[2020-06-14] MEDS: DEXAMETHASONE 4 MG TABLET PO SCH (08:21)
[2020-06-14] MEDS: ENOXAPARIN SODIUM 40 MG/0.4 ML DISP.SYRIN SQ SCH (08:23)
[2020-06-14 12:00] VITALS: BP 132/79
--- NOTE | 2020-06-14 16:26 | NUR ---
MOTOR BIKE MECHANIC NOTE PATIENT MEDICALLY STABLE FOR DISCHARGE. PATIENT IN NO ACUTE DISTRESS. NO SOB NOTED. PATIENT BREATHING IS EVEN AND UNLABORED. DC INSTRUCTIONS PROVIDED, PATIENT VERBALIZED UNDERSTANDING. PATIENT BELONGINGS WITH HIM, BELONGINGS LIST SIGNED. PATIENT IV REMOVED. ID BAND REMOVED. PATIENT REFUSED SKIN ASSESSMENT. PATIENT STATED " IT IS NOT NECESSARY, MY SKIN IS OKAY". EDUCATED RISKS VS BENEFITS. PATIENT CONTINUED TO REFUSE. PATIENT KEPT CLEAN, DRY, AND COMFORTABLE THROUGHOUT SHIFT. NEEDS AND CONCERNS ADDRESSED. EXPLAINED ALL DUE MEDS. PATIENT REPORT GIVEN TO NINFA RN AT [facility]. PATIENT GOING BY AMBULANCE BACK TO [facility]. REPORT GIVEN TO 2 ROD MACHINE OPERATOR. MD AWARE OF DISCHARGE.
== END 2020-06-14 16:30 | DRG 177 ==
LOC: ER 19:56 → TELE2 22:42
PROVIDERS: ADMIT Nurse Practitioner Acute Care; ATTEND Student in an Organized Health Care Education/Training Program
DX: U07.1 COVID-19 (principal); J15.6 Pneumonia due to other Gram-negative bacteria; J12.89 Other viral pneumonia; J44.0 Chronic obstructive pulmonary disease with (acute) lower respiratory infection; I25.10 Atherosclerotic heart disease of native coronary artery without angina pectoris; D53.9 Nutritional anemia, unspecified; I10 Essential (primary) hypertension; Z87.01 Personal history of pneumonia (recurrent); R04.0 Epistaxis; Z85.46 Personal history of malignant neoplasm of prostate; Z87.891 Personal history of nicotine dependence; Z92.3 Personal history of irradiation; Z92.21 Personal history of antineoplastic chemotherapy; Z79.82 Long term (current) use of aspirin; Z79.899 Other long term (current) drug therapy; K83.8 Other specified diseases of biliary tract; Z85.72 Personal history of non-Hodgkin lymphomas; R09.02 Hypoxemia; I70.0 Atherosclerosis of aorta; E78.5 Hyperlipidemia, unspecified
CPT/HCPCS: 36415; 36600; 71045-TC; 80048-TC; 80061-TC; 80076-TC; 82728-TC; 82803-TC; 83605-TC; 83615-TC; 83735-TC; 84100-TC; 84443-TC; 84484-TC; 85025-TC; 85378-TC; 85610-TC; 86140-TC; 87040-TC; 97112-TC; 97116-TC; 97530-TC; C9803; G0378; J0692; J1650; J3490; J7030; J7060; J8540; U0003

== ENCOUNTER 2021-12-18 22:49 | Emergency (ER) | payer MEDICARE, OTHER ==
[~2021-12-18] VITALS: Ht 167.6 cm; Wt 76.7 kg
[~2021-12-18 22:49] MED LIST changes: -CEFU500T66 PO; +LORA2TAB95 PO; +MULT-447 PO
[2021-12-18] MEDS ORDERED: IV NS 0.9% 1,000 ML BAG IV ONE (23:30)
[2021-12-18] MEDS ORDERED: methylPREDNISolone SOD SUCC 125 MG/2ML VIAL IV ONE (23:30)
[2021-12-18] MEDS ORDERED: FAMOTIDINE/PF INJ 20 MG/2 ML VIAL IV ONE ×2 (23:30→23:37)
[2021-12-18] MEDS ORDERED: diphenhydrAMINE HCL 50 MG/ML VIAL IV ONE (23:30)
--- NOTE | 2021-12-18 23:30 | NUR ---
BIBDAUGHTER C/O ALLERGIC REACTION AFTER EATING HONEY. STARTED HAVING ITCHINESS AND PUFFINESS SINCE 4AM. +SOB SATTING 97%. DAUGHTER AT BEDSIDE. PT ATTACHED TO MONITOR AND POX. WILL CONT TO MONITOR.
[2021-12-18] MEDS ORDERED: methylPREDNISolone SOD SUCC 125 MG/2ML VIAL ONE (23:36)
[2021-12-18] MEDS ORDERED: diphenhydrAMINE HCL 50 MG/ML VIAL ONE (23:36)
--- NOTE | 2021-12-19 00:35 | NUR ---
Patient discharged to home in stable condition. Written and verbal after care instructions given. Patient verbalizes understanding of instruction.Patient ambulatory with a steady gait
[2021-12-19 00:38] VITALS: BP 142/81
== END 2021-12-19 00:38 | disposition home or self-care (01) ==
LOC: ER 23:05
DX: T78.1XXA Other adverse food reactions, not elsewhere classified, initial encounter (principal); L29.9 Pruritus, unspecified; I10 Essential (primary) hypertension; Z86.69 Personal history of other diseases of the nervous system and sense organs; Z85.46 Personal history of malignant neoplasm of prostate; Z87.01 Personal history of pneumonia (recurrent); Z79.899 Other long term (current) drug therapy; Z91.018 Allergy to other foods; X58.XXXA Exposure to other specified factors, initial encounter
CPT/HCPCS: 96361; 96374; 96375; 99284; J1200; J2930; J3490; J7030